=== PATIENT | male | born 1955 | race Caucasian/White ===

== ENCOUNTER 2017-04-12 09:32 | Inpatient (IN) | payer MEDICARE ==
[~2017-04-12] VITALS: Ht 177.8 cm; Wt 60.0 kg
[~2017-04-12 09:32] MED LIST: ACET325S8 PO; AMLO5 PO; ASPI81CH3 PO; ATOR20TA PO; CILO100T PO; CLOP75 PO; GLUCTAB PO; ISOS60 PO; LEVO50TA4 PO; MAGN400 PO; MIRTA15 PO; NEUR600T PO; PERC10TA27 PO; PROT40TA PO; SENN-29 PO; TAB-TAB PO; TRAD5TAB PO
[2017-04-12 09:55] VITALS: BP 152/79; PULSE 89; RESP 18; TEMP 98.2; O2SAT 97
[2017-04-12 10:14] VITALS: O2SAT 96
[2017-04-12 10:56] LABS: AUTOMATED NEUTROPHIL # 8.8 TH/MM3 (1.8-7.7); BASOPHIL % 0.4 % (0.0-2.0); EOSINOPHIL # 0.1 TH/MM3 (0-0.4); EOSINOPHIL % 1.1 % (0.0-4.0); HEMOGLOBIN 13.6 GM/DL (13.0-17.0); LYMPH % 13.6 % (9.0-44.0); LYMPHOCYTE # 1.6 TH/MM3 (1.0-4.8); MEAN CELL VOLUME 89.2 FL (80.0-100.0); MEAN CORPUSCULAR HEMOGLOBIN 30.3 PG (27.0-34.0); MEAN PLATELET VOLUME 9.3 FL (7.0-11.0); NEUT % 75.9 % (16.0-70.0); PLATELET COUNT 267 TH/MM3 (150-450); RED BLOOD COUNT 4.48 MIL/MM3 (4.50-5.90); RED CELL DISTRIBUTION WIDTH 13.2 % (11.6-17.2); WHITE BLOOD COUNT 11.6 TH/MM3 (4.0-11.0)
[2017-04-12 11:02] LABS: PROTHROMBIN TIME - PATIENT 10.3 SEC (9.8-11.6)
[2017-04-12 11:20] LABS: ALBUMIN 3.6 GM/DL (3.4-5.0); ALKALINE PHOSPHATASE 144 U/L (45-117); ALT (GPT) 12 U/L (12-78); AST (GOT) 10 U/L (15-37); BICARBONATE 26.6 MEQ/L (21.0-32.0); BLOOD UREA NITROGEN 17 MG/DL (7-18); CHLORIDE 99 MEQ/L (98-107); CREATININE 1.25 MG/DL (0.60-1.30); GLOMERULAR FILTRATION RATE 59 ML/MIN (>89); GLUCOSE,RANDOM 403 MG/DL (74-106); SODIUM (NA) 135 MEQ/L (136-145); TOTAL BILIRUBIN ADULT 0.4 MG/DL (0.2-1.0); TOTAL PROTEIN 7.8 GM/DL (6.4-8.2); TROPONIN I LESS THAN 0.02 NG/ML (0.02-0.05)
--- NOTE | 2017-04-12 11:22 | RADRPT ---
EXAM DATE/TIME: 04/12/2017 10:38 [facility] COMPARISON: No previous studies available for comparison. INDICATIONS : Large ulcer on the plantar surface of the left great toe, second and third digits appear red and inf lamed MEDICAL HISTORY : diabetic SURGICAL HISTORY : right leg amputation ENCOUNTER: Initial ACUITY: 2 days PAIN SCORE: 9/10 LOCATION: Left foot FINDINGS: 3 views of the left foot demonstrate no acute fracture or dislocation. Mineralization is within justina l limits. Lisfranc joint appears intact. There is soft tissue swelling of the first digit with ulcera tion along the plantar aspect. There is no radiopaque foreign body. The adjacent distal phalanx demon strates no erosion, periosteal reaction, or osteopenia to suggest osteomyelitis. There is severe smal l vessel arterial vascular calcification in a pattern typical for a diabetic patient. There are degen erative changes in the midfoot. CONCLUSION: 1. Soft tissue swelling of the first digit. There are no findings to indicate osteomyelitis of the ad jacent bones. Please note that the radiographic findings of osteomyelitis can take 10-14 days to beco me apparent. Therefore, suggest followup if clinical suspicion persists for osteomyelitis. 2. Severe small vessel arterial vascular calcification. Chirag Green MD on April 12, 2017 at 11:19 Board Certified Radiologist. This report was verified electronically.
--- NOTE | 2017-04-12 11:24 | RADRPT ---
EXAM DATE/TIME: 04/12/2017 10:35 [facility] COMPARISON: CHEST SINGLE AP, July 29, 2011, 16:18. INDICATIONS : Chest pain today MEDICAL HISTORY : diabetic, ulcer plantar surface of left foot SURGICAL HISTORY : right leg amputation ENCOUNTER: Initial ACUITY: 1 day PAIN SCORE: Non-responsive. LOCATION: Bilateral chest FINDINGS: Portable AP view of the chest demonstrates a normal-sized cardiac silhouette. No effusion, consolidat ion, or pneumothorax is visualized. The bones and soft tissues demonstrate no acute abnormality. CONCLUSION: No acute cardiopulmonary abnormality is identified. Chirag Green MD on April 12, 2017 at 11:22 Board Certified Radiologist. This report was verified electronically.
--- NOTE | 2017-04-12 11:41 | PD ---
HPI Chief Complaint: Pain: Acute or Chronic Time Seen by Provider: 10:23 Travel History International Travel<30 days: No Contact w/Intl Traveler<30days: No Traveled to known affect area: No History of Present Illness HPI This is a 61-year-old male with a history of diabetes mellitus, hypertension, peripheral vascular disease, presents here with complaints of redness and drainage of his left first and second toe. Patient states that over the weekend he noticed that it was discolored. He had his check it and she noted that there were ulcers on the bottom of his 2 toes. He was seen by his ob gyn, Dr. Garcia, who evaluated him and sent him here for admission. Patient was also complaining of some atypical chest pain. He reports that the pain from his foot runs up his leg into his groin and into his left chest. He describes it as a 6 out of 10 on the pain scale. There is no radiation from his chest. There is no nausea, diaphoresis. PFSH Past Medical History Arthritis: Yes Asthma: No Anxiety: No Depression: Yes Cancer: Yes (angiosarcoma) Cardiovascular Problems: Yes Chest Pain: No COPD: No Diabetes: Yes Endocrine: Yes Gastrointestinal Disorders: Yes (22 YRS AGO PANCREATITIS GERD) Genitourinary: No Hepatitis: No Hiatal Hernia: No Hypertension: Yes Immune Disorder: No Musculoskeletal: Yes Neurologic: No Psychiatric: No Respiratory: No Integumentary: Yes (contact dermatitis) Immunizations Current: Yes Pancreatitis: Yes Thyroid Disease: Yes (hyperthyroid) Past Surgical History Abdominal Surgery: No Body Medical Devices: LUMBAR FUSION Cardiac Surgery: No Ear Surgery: No Endocrine Surgery: No Eye Surgery: No Genitourinary Surgery: No Gynecologic Surgery: No Joint Replacement: No Oral Surgery: Yes (TONSILLECTOMY) Pacemaker: No Thoracic Surgery: No Other Surgery: Yes (APPENDECTOMY) Social History Alcohol Use: No Tobacco Use: No Substance Use: No Allergies-Medications (Allergen,Severity, Reaction): Coded Allergies: No Known Allergies (Verified Allergy, Unknown, 04/12/17) Reported Meds & Prescriptions Reported Meds & Active Scripts Active Review of Systems Except as stated in HPI: all other systems reviewed are Neg General / Constitutional: No: Fever, Chills Eyes: No: Diploplia, Blurred Vision HENT: No: Headaches, Lightheadedness, Neck Pain Cardiovascular: Positive: Chest Pain or Discomfort (Left-sided reported as "lumpy"), No: Palpitations, Irregular Rhythm Respiratory: No: Cough Gastrointestinal: No: Nausea, Vomiting Genitourinary: No: Dysuria, Incontinence Musculoskeletal: Positive: Pain (From his lower left extremity up his groin), Other (Redness and drainage to his) Skin: Positive Lesions (Red and dark lesion to the pad of his second and first left toes) Neurologic: Positive: Sensory Disturbance, No: Weakness, Dizziness, Headache ( Neuropathy from the diabetes.) Psychiatric: No: Substance Abuse Physical Exam Narrative GENERAL: Well-developed well-nourished male in no acute respiratory distress. SKIN: Focused skin assessment warm/dry. HEAD: Atraumatic. Normocephalic. EYES: Pupils equal and round. No scleral icterus. No injection or drainage. ENT: No nasal bleeding or discharge. Mucous membranes pink and moist. NECK: Trachea midline. Supple CARDIOVASCULAR: Regular rate and rhythm. No murmur appreciated. RESPIRATORY: No accessory muscle use. Clear to auscultation. Breath sounds equal bilaterally. GASTROINTESTINAL: Abdomen soft, non-tender, nondistended. Hepatic and splenic margins not palpable. MUSCULOSKELETAL: Previous right lower extremity amputation. On examination patient left foot, he has redness/circumferential, of his first and second toes. On the bottom there are black eschar ulcerations with some serous drainage. There is lymphangitis noted mid medial jack. NEUROLOGICAL: Awake and alert. No obvious cranial nerve deficits. Motor grossly within normal limits. Normal speech. Data Data Last Documented VS Vital Signs Date Time Temp Pulse Resp B/P (MAP) Pulse Ox O2 Delivery O2 Flow Rate FiO2 04/12/17 09:55 98.2 89 18 152/79 (103) 97 Orders Orders Complete Blood Count With Diff (04/12/17 10:24) Comprehensive Metabolic Panel (04/12/17 10:24) Ckmb (Isoenzyme) Profile (04/12/17 10:24) Troponin I (04/12/17 10:24) Prothrombin Time / Inr (Pt) (04/12/17 10:24) Act Partial Throm Time (Ptt) (04/12/17 10:24) Blood Culture (04/12/17 10:24) Urinalysis - C+S If Indicated (04/12/17 10:24) Wound Culture And Gram Stain (04/12/17 10:24) Chest, Single Ap (04/12/17 10:24) Iv Access Insert/Monitor (04/12/17 10:24) Ecg Monitoring (04/12/17 10:24) Oximetry (04/12/17 10:24) Foot, Complete (Mos1uwd) (04/12/17 10:24) Electrocardiogram (04/12/17 10:15) Admit To Inpatient (04/12/17 ) Code Status (04/12/17 11:48) Vital Signs (Adult) Q4H (04/12/17 11:48) Activity Oob With Assistance (04/12/17 11:48) Vessel Engineer / Telemetry .CONTINUOUS (04/12/17 11:48) Diet Diabetic (04/12/17 Lunch) Sodium Chloride 0.9% Flush (Ns Flush) (04/12/17 12:00) Sodium Chloride 0.9% Flush (Ns Flush) (04/12/17 21:00) Acetaminophen (Tylenol) (04/12/17 12:00) Metoclopramide Inj (Reglan Inj) (04/12/17 12:00) Basic Metabolic Panel (Bmp) (04/13/17 06:00) Complete Blood Count With Diff (04/13/17 06:00) Pt Request For Service (04/12/17 11:48) Scd Bilateral/Knee High LUAN.BID (04/12/17 11:48) Naloxone Inj (Narcan Inj) (04/12/17 12:00) Magnesium Hydroxide Liq (Milk Of Magnesi (04/12/17 12:00) Inpatient Certification (04/12/17 ) Vancomycin Inj (Vancomycin Inj) (04/12/17 12:00) Piperacil-Tazo 3.375 Gm Premix (Zosyn 3. (04/12/17 12:00) Mri Foot W&W/O Contrast (04/12/17 ) Insulin Aspart Supplemtl Scale (Novolog (04/12/17 12:00) Dextrose 50% In Silvia (Vial) Inj (D50w (Vi (04/12/17 12:00) Glucagon Inj (Glucagon Inj) (04/12/17 12:00) Vancomycin Inj (Vancomycin Inj) (04/13/17 00:05) Admit Order (Ed Use Only) (04/12/17 12:39) Vancomycin Consult Pharmacy (Vancomycin (04/12/17 13:00) Labs Laboratory Tests Test 04/12/17 10:20 White Blood Count 11.6 TH/MM3 Red Blood Count 4.48 MIL/MM3 Hemoglobin 13.6 GM/DL Hematocrit 40.0 % Mean Corpuscular Volume 89.2 FL Mean Corpuscular Hemoglobin 30.3 PG Mean Corpuscular Hemoglobin Concent 34.0 % Red Cell Distribution Width 13.2 % Platelet Count 267 TH/MM3 Mean Platelet Volume 9.3 FL Neutrophils (%) (Auto) 75.9 % Lymphocytes (%) (Auto) 13.6 % Monocytes (%) (Auto) 9.0 % Eosinophils (%) (Auto) 1.1 % Basophils (%) (Auto) 0.4 % Neutrophils # (Auto) 8.8 TH/MM3 Lymphocytes # (Auto) 1.6 TH/MM3 Monocytes # (Auto) 1.0 TH/MM3 Eosinophils # (Auto) 0.1 TH/MM3 Basophils # (Auto) 0.0 TH/MM3 CBC Comment DIFF FINAL Differential Comment Prothrombin Time 10.3 SEC Prothromb Time International Ratio 1.0 RATIO Activated Partial Thromboplast Time 27.5 SEC Blood Urea Nitrogen 17 MG/DL Creatinine 1.25 MG/DL Random Glucose 403 MG/DL Total Protein 7.8 GM/DL Albumin 3.6 GM/DL Calcium Level 9.0 MG/DL Alkaline Phosphatase 144 U/L Aspartate Amino Transf (AST/SGOT) 10 U/L Alanine Aminotransferase (ALT/SGPT) 12 U/L Total Bilirubin 0.4 MG/DL Sodium Level 135 MEQ/L Potassium Level 4.3 MEQ/L Chloride Level 99 MEQ/L Carbon Dioxide Level 26.6 MEQ/L Anion Gap 9 MEQ/L Estimat Glomerular Filtration Rate 59 ML/MIN Total Creatine Kinase 44 U/L Troponin I LESS THAN 0.02 NG/ML MDM Medical Decision Making Medical Screen Exam Complete: Yes Emergency Medical Condition: Yes Differential Diagnosis Cellulitis versus osteomyelitis versus vascular insufficiency Narrative Course 61-year-old male history diabetes mellitus, hypertension, who was sent here by his ob gyn for admission to the hospitalist service. Patient also complained of atypical chest pain. EKG shows no evidence of acute findings. Cultures have been obtained. Patient be started on vancomycin. There is a call out to the [facility] service. He will be admitted and have a consult with the ob gyn production consultant, Carlyn. Diagnosis Primary Impression: Left foot first and second toe ulcers with cellulitis Additional Impressions: DM2 (diabetes mellitus, type 2) PVD (peripheral vascular disease) HTN (hypertension) Admitting Information Admitting Physician Requests: Admit Bill Mitchell MD Apr 12, 2017 11:41
[2017-04-12] MEDS ORDERED: SODIUM CHLORIDE 0.9% FLUSH 10 ML FLUSH IV FLUSH PRN (12:00)
[2017-04-12] MEDS ORDERED: METOCLOPRAMIDE HCL 10 MG/2 ML VIAL IV PUSH PRN (12:00)
[2017-04-12] MEDS ORDERED: GLUCAGON 1 MG/ML VIAL OTHER PRN (12:00)
[2017-04-12] MEDS ORDERED: NALOXONE HCL 0.4 MG/ML AMP IV PUSH PRN (12:00)
[2017-04-12] MEDS ORDERED: VANCOMYCIN INJ 1,000 MG in SODIUM CHLOR 0.9% 250 ML INJ 250 ML IV ONE (12:00)
[2017-04-12] MEDS ORDERED: ACETAMINOPHEN 325 MG TAB PO PRN (12:00)
[2017-04-12] MEDS ORDERED: DEXTROSE 50% IN WATER 50 ML VIAL(D50) IV PUSH PRN (12:00)
[2017-04-12] MEDS ORDERED: MAGNESIUM HYDROXIDE SUSP 30 ML CUP PO PRN (12:00)
[2017-04-12] MEDS: INSULIN ASPART SUPPLEMENTAL SCALE SQ SCH ×3 (12:12→20:24)
[2017-04-12] MEDS ORDERED: Vancomycin Consult Pharmacy 1 EA OTHER SCH (13:00)
[2017-04-12] MEDS: PIPERACIL-TAZO 3.375 GM PREMIX 50 ML IV SCH ×2 (13:16→17:54)
[2017-04-12 13:19] VITALS: BP 122/69; PULSE 82; RESP 17; O2SAT 96
[2017-04-12] MEDS ORDERED: CALC600T5 PO (13:29)
[2017-04-12] MEDS ORDERED: MAGNESIUM 1000 MG PO (13:29)
[2017-04-12] MEDS ORDERED: VITA10002 PO (13:29)
[2017-04-12] MEDS ORDERED: AMLO5 PO (13:29)
[2017-04-12] MEDS ORDERED: INSU1INJ14 SQ (13:29)
[2017-04-12] MEDS ORDERED: PANC3600 PO (13:29)
[2017-04-12] MEDS ORDERED: NOVOLOGP2 SQ (13:29)
[2017-04-12] MEDS ORDERED: MULTTAB67 PO (13:29)
[2017-04-12] MEDS ORDERED: LEVO.075 PO (13:29)
[2017-04-12] MEDS ORDERED: PANT40TA3 PO (13:29)
[2017-04-12] MEDS ORDERED: METF850T PO (13:29)
[2017-04-12] MEDS ORDERED: LIPI40TA PO (13:29)
[2017-04-12] MEDS ORDERED: TRAD5TAB PO (13:29)
[2017-04-12] MEDS ORDERED: SYNT88TA PO (13:29)
[2017-04-12] MEDS ORDERED: VITA100018 PO (13:29)
[2017-04-12] MEDS ORDERED: PLAV75TA29 PO (13:29)
[2017-04-12] MEDS ORDERED: LYRI75CA PO (13:29)
[2017-04-12] MEDS ORDERED: CILO100T PO (13:29)
[2017-04-12] MEDS ORDERED: ASPI81TA16 PO (13:29)
[2017-04-12] MEDS ORDERED: ISOS60TA PO (13:29)
--- NOTE | 2017-04-12 13:57 | HHI.HP ---
HPI Service [facility] Hospitalists Primary Care Physician Willis Boyd MD Admission Diagnosis Left foot cellulitis, DM, HTN, Chief Complaint: ledt foot wound Travel History International Travel<30 Days: No Contact w/Intl Traveler <30 Da: No Traveled to Known Affected Are: No History of Present Illness Mr. Ott is a pleasant 61 y/o male with diabetes mellitus, hypertension, peripheral vascular disease s/p right AKA in 2016, and chronic pain who presented to the ED at [facility] on 04/12/17 with complaints of redness and drainage of his left first and second toes. Patient reported that over the weekend he noticed the first and second toes became discolored. He had his check it and she noted that there were ulcers on the bottom of his 2 toes. He was seen by his technical support technician, Dr. Garcia, who evaluated him and sent him here for admission. He reports that the pain from his foot runs up his leg into his groin. He also reported some left chest pain that began yesterday, rated as a 6 out of 10 on the pain scale. It occurs sporadically and lasts for varying amounts of time. It can vary from a sharp pain to a dull ache, not exertional. No reported SOB, palpitations, nausea/vomiting, diaphoresis, or weakness. Review of Systems Constitutional: DENIES: Fever, Chills Respiratory: DENIES: Shortness of breath Cardiovascular: COMPLAINS OF: Chest pain, Lower Extremity Edema Gastrointestinal: DENIES: Abdominal pain, Constipation, Nausea, Vomiting Genitourinary: DENIES: Hematuria, Dysuria Musculoskeletal: COMPLAINS OF: Joint pain, Joint Swelling Neurologic: DENIES: Headache Psychiatric: DENIES: Confusion Past Family Social History Past Medical History PVD s/p right AKA Type 2 diabetes mellitus with polyneuropathy Gout Hypertension Hyperlipidemia Insomnia Lumbar radiculopathy Chronic pancreatitis GERD Chronic pancreatitis History of seizure disorder Depression Hypothyroidism B12 deficiency Bilateral cataracts Chronic pain Decreased hearing Lumbar disc degeneration Osteoarthritis Past Surgical History Right AKA Appendectomy Cataract surgery Lumbar Laminectomy Tonsillectomy Skin biopsy Esophageal gastroduodenoscopy Two endovascular procedures Reported Medications -Lyrica 75 Mg PO TID -Pantoprazole 40 Mg PO BID -Creon (Pancrelipase) 36,000-114,000-180,000 Units 2 Cap PO TID -Metformin 850 Mg PO BIDPC -Magnesium Oxide 1,000 Mg PO EVERY OTHER DAY -Synthroid 88 Mcg PO MOWESA -Synthroid 75 Mcg PO SUTUTHFR -Isosorbide Mononitrate ER 60 Mg PO DAILY -Tresiba Flextouch Pen Inj 18 Units SQ HS -Novolog Inj 6 Units SQ TIDAC -Plavix 75 Mg PO DAILY -Lipitor 40 Mg PO DAILY -Aspirin 81 Mg PO DAILY ??Cilostazol 100 Mg Tab 100 Mg PO BID ??Norvasc (Amlodipine Besylate) 5 Mg Tab 5 Mg PO DAILY ??Tradjenta (Linagliptin) 5 Mg Tab 5 Mg PO DAILY Calcium 600 Mg PO BID Multiple Vitamin 1 Tab PO DAILY Vitamin D3 1,000 Units PO DAILY Vitamin B-12 1,000 Mcg PO DAILY Allergies: Coded Allergies: No Known Allergies (Verified Allergy, Unknown, 04/12/17) Family History Noncontributory Social History Hx of tobacco use, quit 25 years ago Social alcohol use Denies any illicit drug use Physical Exam Vital Signs Vital Signs Date Time Temp Pulse Resp B/P (MAP) Pulse Ox O2 Delivery O2 Flow Rate FiO2 04/12/17 13:19 82 17 122/69 (86) 96 Room Air 04/12/17 10:14 96 04/12/17 09:55 98.2 89 18 152/79 (103) 97 Physical Exam GENERAL: This is a well-nourished, well-developed patient, in no apparent distress. SKIN: No rashes, ecchymoses or lesions. Cool and dry. HEENT: Atraumatic. Normocephalic. No temporal or scalp tenderness. No scleral icterus. Airway patent. NECK: Trachea midline, supple, nontender CARDIO: Regular. RESP: CTA bilaterally. No wheezes, rales, or rhonchi. ABD: +BS, soft, non-tender, nondistended. EXT: Right AKA. Left foot first and second toes with circumferential erythema and black eschar ulcerations with some serous drainage on the plantar aspects. There is streaking noted mid medial jack. NEURO: Awake and alert. Motor and sensory grossly within normal limits. Normal speech. Laboratory Laboratory Tests Test 04/12/17 10:20 White Blood Count 11.6 Red Blood Count 4.48 Hemoglobin 13.6 Hematocrit 40.0 Mean Corpuscular Volume 89.2 Mean Corpuscular Hemoglobin 30.3 Mean Corpuscular Hemoglobin Concent 34.0 Red Cell Distribution Width 13.2 Platelet Count 267 Mean Platelet Volume 9.3 Neutrophils (%) (Auto) 75.9 Lymphocytes (%) (Auto) 13.6 Monocytes (%) (Auto) 9.0 Eosinophils (%) (Auto) 1.1 Basophils (%) (Auto) 0.4 Neutrophils # (Auto) 8.8 Lymphocytes # (Auto) 1.6 Monocytes # (Auto) 1.0 Eosinophils # (Auto) 0.1 Basophils # (Auto) 0.0 CBC Comment DIFF FINAL Differential Comment Prothrombin Time 10.3 Prothromb Time International Ratio 1.0 Activated Partial Thromboplast Time 27.5 Blood Urea Nitrogen 17 Creatinine 1.25 Random Glucose 403 Total Protein 7.8 Albumin 3.6 Calcium Level 9.0 Alkaline Phosphatase 144 Aspartate Amino Transf (AST/SGOT) 10 Alanine Aminotransferase (ALT/SGPT) 12 Total Bilirubin 0.4 Sodium Level 135 Potassium Level 4.3 Chloride Level 99 Carbon Dioxide Level 26.6 Anion Gap 9 Estimat Glomerular Filtration Rate 59 Total Creatine Kinase 44 Troponin I LESS THAN 0.02 Date/Time Source Procedure Growth Status 04/12/17 10:30 Blood Peripheral Aerobic Blood Culture Pending Received 04/12/17 10:30 Blood Peripheral Anaerobic Blood Culture Pending Received 04/12/17 10:35 Wound Toe Gram Stain Pending Received 04/12/17 10:35 Wound Toe Wound Culture Pending Received Result Diagram: 04/12/17 1020 04/12/17 1020 Imaging Foot Xray (04/12/17) - Soft tissue swelling of the first digit. There are no findings to indicate osteomyelitis of the adjacent bone. - Severe small vessel arterial vascular calcifications CXR (04/12/17) - No acute cardiopulmonary abnormality identified Caprini VTE Risk Assessment Caprini VTE Risk Assessment: Mod/High Risk (score >= 2) Caprini Risk Assessment Model Point Value = 1 Point Value = 2 Point Value = 3 Point Value = 5 Age 41-60 Minor surgery BMI > 25 kg/m2 Swollen legs Varicose veins or History of unexplained or recurrent spontaneous Oral contraceptives or hormone replacement Sepsis (< 1 month) Serious lung disease, including pneumonia (< 1 month) Abnormal pulmonary function Acute myocardial infarction Congestive heart failure (< 1 month) History of inflammatory bowel disease Medical patient at bed rest Age 61-74 Arthroscopic surgery Major open surgery (> 45 min) Laparoscopic surgery (> 45 min) Malignancy Confined to bed (> 72 hours) Immobilizing plaster cast Central venous access Age >= 75 History of VTE Family history of VTE Factor V Leiden Prothrombin [id number] Lupus anticoagulant Anticardiolipin antibodies Elevated serum homocysteine Heparin-induced thrombocytopenia Other congenital or acquired thrombophilia Stroke (< 1 month) Elective arthroplasty Hip, pelvis, or leg fracture Acute spinal cord injury (< 1 month) Prophylaxis Regimen Total Risk Factor Score Risk Level Prophylaxis Regimen 0-1 Low Early ambulation 2 Moderate Order ONE of the following: *Sequential Compression Device (SCD) *Heparin 5000 units SQ BID 3-4 Higher Order ONE of the following medications: *Heparin 5000 units SQ TID *Enoxaparin/Lovenox 40 mg SQ daily (WT < 150 kg, CrCl > 30 mL/min) *Enoxaparin/Lovenox 30 mg SQ daily (WT < 150 kg, CrCl > 10-29 mL/min) *Enoxaparin/Lovenox 30 mg SQ BID (WT < 150 kg, CrCl > 30 mL/min) AND/OR *Sequential Compression Device (SCD) 5 or more Highest Order ONE of the following medications: *Heparin 5000 units SQ TID (Preferred with Epidurals) *Enoxaparin/Lovenox 40 mg SQ daily (WT < 150 kg, CrCl > 30 mL/min) *Enoxaparin/Lovenox 30 mg SQ daily (WT < 150 kg, CrCl > 10-29 mL/min) *Enoxaparin/Lovenox 30 mg SQ BID (WT < 150 kg, CrCl > 30 mL/min) AND *Sequential Compression Device (SCD) Assessment and Plan Problem List: (1) Unspecified open wound, left foot, initial encounter ICD Codes: S91.302A - Unspecified open wound, left foot, initial encounter Plan: - Pt is a 61 y/o male with diabetes mellitus, hypertension, peripheral vascular disease s/p right AKA in 2015, and chronic pain who presented to the ED at [facility] on 04/12/17 with complaints of redness and drainage of his left first and second toes. Patient reported that over the weekend he noticed the first and second toes became discolored and there were ulcers on the bottom of his 2 toes. He was seen by his technical support technician, Dr. Garcia, today who evaluated him and sent him here for admission. - Foot Xray in the ED without evidence of osteomyelitis - MRI Foot ordered - Wound culture and blood cultures taken in the ED - Vancomycin IV given in the ED, and this will be continued with pharmacy dosing - Start Zosyn - Consult podiatry - Hold Plavix for now in case podiatry plans any surgical intervention - Supportive care - Further recommendations as the case develops (2) PVD (peripheral vascular disease) ICD Codes: I73.9 - Peripheral vascular disease, unspecified Status: Acute Plan: - Pt with hx of PAD and has right AKA (3) Chest pain ICD Codes: R07.9 - Chest pain, unspecified Plan: - First set of CE are negative - Repeat CE and EKGs - 2D echo - Lexiscan in AM (4) DM2 (diabetes mellitus, type 2) ICD Codes: E11.9 - Type 2 diabetes mellitus without complications Status: Chronic Plan: - Hold OHA - NovoLog SSI - Pt also takes Tresiba 18 units HS, we will give Levemir 10 units HS and titrate up as needed - Accu checks (5) HTN (hypertension) ICD Codes: I10 - Essential (primary) hypertension Status: Chronic Plan: - Resume home meds - Monitor (6) Depression ICD Codes: F32.9 - Major depressive disorder, single episode, unspecified Status: Chronic Plan: - Cont. home meds (7) Unilateral AKA ICD Codes: Z89.619 - Acquired absence of unspecified leg above knee Status: Acute Assessment and Plan Patient examined. Assessment and plan formulated with Adry Martinez PA-C. I agree with the above. Physician Certification 2 Midnight Certification Type: Admission for Inpatient Services Order for Inpatient Services The services are ordered in accordance with Medicare regulations or non- Medicare payer requirements, as applicable. In the case of services not specified as inpatient-only, they are appropriately provided as inpatient services in accordance with the 2-midnight benchmark. Estimated LOS (days): 3 3 days is the estimated time the patient will need to remain in the hospital, assuming treatment plan goals are met and no additional complications. Post-Hospital Plan: Not yet determined Adry Martinez Apr 12, 2017 13:57 Chapito Woods DO Apr 19, 2017 10:39
[2017-04-12] MEDS ORDERED: GADODIAMIDE PF 287 MG/ML 20 ML VIAL (for RAD MRI) IV PUSH ONE (14:27)
--- NOTE | 2017-04-12 15:20 | RADRPT ---
EXAM DATE/TIME: 04/12/2017 13:56 [facility] COMPARISON: FOOT LEFT COMPLETE ([id number]), April 12, 2017, 10:38. INDICATIONS : Ulcer. Open wound on distal end of first and second digit, left foot. CONTRAST: 20 cc Omniscan (gadodiamide) IV MEDICAL HISTORY : Hypertension. Diabetes. SURGICAL HISTORY : Fusion, lumbar. Tonsillectomy. Appendectomy. Cataracts. Knee. Shoulder. ENCOUNTER: Subsequent ACUITY: 4-6 days PAIN SCORE: 0/10 LOCATION: Left foot TECHNIQUE: Multiplanar, multisequence MRI examination was performed without contrast and after the intravenous a dministration of gadolinium. MR angiography from the trifurcation down was performed as well. There is generalized edema in the foot. There is no marrow replacement to suggest osteomyelitis. There is no deep space abscess. On the MR angiogram there is 2 vessel runoff to the foot the dorsalis pedis the peroneal artery does not cross the ankle. The posterior tibial artery is not identified. evident fed by the anterior tibi al. FINDINGS: There is an open wound involving the distal first and second toes. Study was performed with MR angio graphy sequences as well. There is generalized edema in the foot. There is no marrow replacement to suggest osteomyelitis. There is no deep space abscess. On the MR angiogram there is 2 vessel runoff to the foot with the dorsalis pedis supplying blood flow to the foot from the anterior tibial artery.. The posterior tibial artery is not identified. Plantar arch is no t visualized.. The peroneal artery does not cross the ankle. CONCLUSION: 1. No evidence for osteomyelitis. 2. 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 The dorsalis pedis is well-demonstrated fed by the anterior tibial artery. Blake Edwards MD FACR on April 12, 2017 at 15:13 Board Certified Radiologist. This report was verified electronically.
[2017-04-12 16:00] VITALS: BP 141/70; PULSE 67; RESP 20; TEMP 98.2; O2SAT 97
[2017-04-12] MEDS: LEVOTHYROXINE SODIUM 88 MCG TAB PO SCH (17:53)
[2017-04-12] MEDS: PREGABALIN 75 MG CAP PO SCH (17:53)
[2017-04-12] MEDS: LIPASE/PROTEASE/AMYLASE (12,000/38,000/60,000) CAP PO SCH (17:54)
[2017-04-12 20:00] VITALS: BP 134/70; PULSE 64; RESP 18; TEMP 98.1; O2SAT 95
[2017-04-12] MEDS: PANTOPRAZOLE SOD 40 MG DELAYED RELEASE TAB PO SCH (20:23)
[2017-04-12] MEDS: INSULIN DETEMIR 100 UNITS/ML VIAL SQ SCH (20:24)
[2017-04-12] MEDS: SODIUM CHLORIDE 0.9% FLUSH 10 ML FLUSH IV FLUSH SCH (20:24)
[2017-04-12 21:21] LABS: TROPONIN I LESS THAN 0.02 NG/ML (0.02-0.05)
[2017-04-13] VITALS (7 sets, daily range): BP systolic 114–132; BP diastolic 59–75; PULSE 58–84; RESP 18–19; TEMP 97.7–98.2; O2SAT 93–97
[2017-04-13] MEDS ORDERED: VANCOMYCIN INJ 1,000 MG in SODIUM CHLOR 0.9% 250 ML INJ 250 ML IV SCH (00:05)
[2017-04-13] MEDS: PIPERACIL-TAZO 3.375 GM PREMIX 50 ML IV SCH ×4 (00:30→16:46)
[2017-04-13 03:01] LABS: AUTOMATED NEUTROPHIL # 5.7 TH/MM3 (1.8-7.7); BASOPHIL # 0.1 TH/MM3 (0-0.2); BASOPHIL % 1.2 % (0.0-2.0); EOSINOPHIL # 0.3 TH/MM3 (0-0.4); EOSINOPHIL % 3.7 % (0.0-4.0); HEMOGLOBIN 13.4 GM/DL (13.0-17.0); LYMPHOCYTE # 2.2 TH/MM3 (1.0-4.8); MEAN CELL VOLUME 87.9 FL (80.0-100.0); MEAN CORPUSCULAR HEMOGLOBIN 30.1 PG (27.0-34.0); MEAN CORPUSCULAR HGB CONC 34.2 % (32.0-36.0); MEAN PLATELET VOLUME 8.7 FL (7.0-11.0); MONOCYTE # 0.8 TH/MM3 (0-0.9); NEUT % 62.1 % (16.0-70.0); PLATELET COUNT 278 TH/MM3 (150-450); RED BLOOD COUNT 4.44 MIL/MM3 (4.50-5.90); RED CELL DISTRIBUTION WIDTH 12.8 % (11.6-17.2); WHITE BLOOD COUNT 9.2 TH/MM3 (4.0-11.0)
[2017-04-13 03:32] LABS: BICARBONATE 27.2 MEQ/L (21.0-32.0); CALCIUM 9.2 MG/DL (8.5-10.1); CREATININE 1.09 MG/DL (0.60-1.30)
[2017-04-13] MEDS: VANCOMYCIN INJ 1,250 MG in SODIUM CHLOR 0.9% 250 ML INJ 250 ML IV SCH ×2 (03:38→21:00)
[2017-04-13 03:49] LABS: TROPONIN I LESS THAN 0.02 NG/ML (0.02-0.05)
[2017-04-13] MEDS: LEVOTHYROXINE SODIUM 75 MCG TAB PO SCH (06:30)
[2017-04-13] MEDS: INSULIN ASPART SUPPLEMENTAL SCALE SQ SCH ×4 (08:00→21:00)
[2017-04-13] MEDS: LIPASE/PROTEASE/AMYLASE (12,000/38,000/60,000) CAP PO SCH ×3 (08:54→16:46)
[2017-04-13] MEDS: ASPIRIN EC 81 MG TABEC PO SCH (08:55)
[2017-04-13] MEDS: amLODIPine BESYLATE 5 MG TAB PO SCH (08:55)
[2017-04-13] MEDS: PANTOPRAZOLE SOD 40 MG DELAYED RELEASE TAB PO SCH ×2 (08:55→21:00)
[2017-04-13] MEDS: ATORVASTATIN 40 MG TAB PO SCH (08:55)
[2017-04-13] MEDS: PREGABALIN 75 MG CAP PO SCH ×3 (08:55→16:46)
[2017-04-13] MEDS: ISOSORBIDE MONONITRATE 60 MG CR TAB (IMDUR) PO SCH (08:55)
[2017-04-13] MEDS: SODIUM CHLORIDE 0.9% FLUSH 10 ML FLUSH IV FLUSH SCH ×2 (08:57→21:00)
[2017-04-13] MEDS ORDERED: REGADENOSON INJ 0.4 MG/5 ML SYR ONE (13:08)
--- NOTE | 2017-04-13 14:24 | ECHRPT ---
Indication: CHEST PAIN CONCLUSIONS Normal left ventricular size. Normal LV systolic function (EF 60%) Mild concentric left ventricular hypertrophy. Aortic valve sclerosis is present. BP: 114 / 59 HR: 62 Rhythm: Sinus MEASUREMENTS (Male / Female) Normal Values Technical Quality:Fair 2D ECHO LV Diastolic Diameter PLAX 5.0 cm 4.2 - 5.9 / 3.9 - 5.3 cm LV Systolic Diameter PLAX 3.5 cm IVS Diastolic Thickness 1.1 cm 0.6 - 1.0 / 0.6 - 0.9 cm LVPW Diastolic Thickness 1.1 cm 0.6 - 1.0 / 0.6 - 0.9 cm LV Relative Wall Thickness 0.4 LVOT Diameter 1.8 cm Aortic Root Diameter 3.2 cm M-MODE AV Cusp Separation MM 2.0 cm DOPPLER AV Peak Velocity 117.0 cm/s AV Peak Gradient 5.5 mmHg AV Mean Gradient 3.0 mmHg AV Velocity Time Integral 17.5 cm LVOT Peak Velocity 89.5 cm/s LVOT Peak Gradient 3.2 mmHg LVOT Velocity Time Integral 17.2 cm AV Area Cont Eq vti 2.5 cm AV Area Cont Eq pk 1.9 cm Mitral E Point Velocity 67.6 cm/s Mitral A Point Velocity 87.4 cm/s Mitral E to A Ratio 0.8 LV E' Lateral Velocity 6.9 cm/s Mitral E to LV E' Lateral Ratio 9.8 LV E' Septal Velocity 5.5 cm/s Mitral E to LV E' Septal Ratio 12.4 TR Peak Velocity 189.0 cm/s TR Peak Gradient 14.3 mmHg Right Atrial Pressure 10.0 mmHg Pulmonary Artery Systolic Pressu 24.3 mmHg Right Ventricular Systolic Press 24.3 mmHg PV Peak Velocity 48.9 cm/s PV Peak Gradient 1.0 mmHg FINDINGS LEFT VENTRICLE Normal left ventricular size. Mild concentric left ventricular hypertrophy. The left ventricular systolic function is normal with an estimated ejection fraction in the range of 60%. RIGHT VENTRICLE Normal right ventricular size and systolic function. LEFT ATRIUM The left atrial size is normal. RIGHT ATRIUM The right atrial size is normal. ATRIAL SEPTUM No atrial level shunt is demonstrated by color flow Doppler interrogation. AORTA The aortic root and proximal ascending aorta are not well visualized. MITRAL VALVE No mitral valve regurgitation. AORTIC VALVE Aortic valve sclerosis is present. No aortic valve regurgitation. TRICUSPID VALVE No tricuspid regurgitation. PULMONARY VALVE No pulmonary valve regurgitation or stenosis. VESSELS The inferior vena cava is normal in size. PERICARDIUM No pericardial effusion. Sabine Blanco MD, FACC (Electronically Signed) Final Date:13 April 2017 14:23
--- NOTE | 2017-04-13 15:16 | RADRPT ---
EXAM DATE/TIME: 04/13/2017 12:51 [facility] COMPARISON: No previous studies available for comparison. INDICATIONS : Substernal chest pain. Angina. DOSE: 25.5 mCi Tc99m Myoview at stress. 8.5 mCi Tc99m Myoview at rest. 0.4 mg Lexiscan STRESS SYMPTOMS: Shortness of breath and nausea. EJECTION FRACTION: > 70% MEDICAL HISTORY : Hypertension. Diabetes mellitus type 2. Gastroesophageal reflux disease. PVD. SURGICAL HISTORY : Appendectomy. Tonsillectomy. 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 ENCOUNTER: Initial ACUITY: 2 days PAIN SCALE: 4/10 LOCATION: Substernal chest TECHNIQUE: The patient underwent pharmacologic stress with infusion of prescribed dose. Continuous ECG tracing was monitored during stress. Gated SPECT imaging was performed after stress and conventional SPECT i maging was performed at rest. The examination was performed on a SPECT/CT scanner, both attenuation and non-corrected datasets were reviewed. FINDINGS: DISTRIBUTION: The maximum perfused segment at stress is in the septal wall. PERFUSION STUDY: The pattern of perfusion at stress is within normal limits. No fixed or reversible perfusion defect i s identified. GATED STUDY: There is intact wall motion and thickening without hypokinetic or dyskinetic segments. CONCLUSION: 1. No left ventricle perfusion abnormality is identified. 2. Normal left ventricle wall motion and calculated ejection fraction. RISK CATEGORY: Low (<1% Annual Mortality Rate) Chirag Green MD on April 13, 2017 at 15:12 Board Certified Radiologist. This report was verified electronically.
--- NOTE | 2017-04-13 15:35 | HHI.PR ---
Subjective Remarks Pt is still having some upper abdominal/lower chest discomfort He states that it is constant and seems to be worse when he is moving Reports that he had been sick about a week ago with food poisoning and was vomiting a lot at that time. Objective Vitals Vital Signs Date Time Temp Pulse Resp B/P (MAP) Pulse Ox O2 Delivery O2 Flow Rate FiO2 04/13/17 11:59 97.7 76 18 120/74 (89) 97 04/13/17 10:34 70 04/13/17 08:05 97.7 67 19 132/75 (94) 93 04/13/17 04:00 97.8 62 18 114/59 (77) 93 04/13/17 00:00 58 04/13/17 00:00 97.8 65 18 120/68 (85) 93 04/12/17 20:00 98.1 64 18 134/70 (91) 95 04/12/17 16:00 98.2 67 20 141/70 (93) 97 Result Diagram: 04/13/17 0250 04/13/17 0250 Other Results Laboratory Tests Test 04/12/17 10:20 04/12/17 20:22 04/13/17 02:50 White Blood Count 11.6 TH/MM3 9.2 TH/MM3 Red Blood Count 4.48 MIL/MM3 4.44 MIL/MM3 Hemoglobin 13.6 GM/DL 13.4 GM/DL Hematocrit 40.0 % 39.0 % Mean Corpuscular Volume 89.2 FL 87.9 FL Mean Corpuscular Hemoglobin 30.3 PG 30.1 PG Mean Corpuscular Hemoglobin Concent 34.0 % 34.2 % Red Cell Distribution Width 13.2 % 12.8 % Platelet Count 267 TH/MM3 278 TH/MM3 Mean Platelet Volume 9.3 FL 8.7 FL Neutrophils (%) (Auto) 75.9 % 62.1 % Lymphocytes (%) (Auto) 13.6 % 24.0 % Monocytes (%) (Auto) 9.0 % 9.0 % Eosinophils (%) (Auto) 1.1 % 3.7 % Basophils (%) (Auto) 0.4 % 1.2 % Neutrophils # (Auto) 8.8 TH/MM3 5.7 TH/MM3 Lymphocytes # (Auto) 1.6 TH/MM3 2.2 TH/MM3 Monocytes # (Auto) 1.0 TH/MM3 0.8 TH/MM3 Eosinophils # (Auto) 0.1 TH/MM3 0.3 TH/MM3 Basophils # (Auto) 0.0 TH/MM3 0.1 TH/MM3 CBC Comment DIFF FINAL DIFF FINAL Differential Comment Prothrombin Time 10.3 SEC Prothromb Time International Ratio 1.0 RATIO Activated Partial Thromboplast Time 27.5 SEC Blood Urea Nitrogen 17 MG/DL 13 MG/DL Creatinine 1.25 MG/DL 1.09 MG/DL Random Glucose 403 MG/DL 78 MG/DL Total Protein 7.8 GM/DL Albumin 3.6 GM/DL Calcium Level 9.0 MG/DL 9.2 MG/DL Alkaline Phosphatase 144 U/L Aspartate Amino Transf (AST/SGOT) 10 U/L Alanine Aminotransferase (ALT/SGPT) 12 U/L Total Bilirubin 0.4 MG/DL Sodium Level 135 MEQ/L 139 MEQ/L Potassium Level 4.3 MEQ/L 3.6 MEQ/L Chloride Level 99 MEQ/L 104 MEQ/L Carbon Dioxide Level 26.6 MEQ/L 27.2 MEQ/L Anion Gap 9 MEQ/L 8 MEQ/L Estimat Glomerular Filtration Rate 59 ML/MIN 69 ML/MIN Total Creatine Kinase 44 U/L 38 U/L 90 U/L Troponin I LESS THAN 0.02 NG/ML LESS THAN 0.02 NG/ML LESS THAN 0.02 NG/ML Imaging Last Impressions Foot X-Ray 04/12/17 1024 Signed Impressions: Service Date/Time: Wednesday, April 12, 2017 10:38 - CONCLUSION: 1. Soft tissue swelling of the first digit. There are no findings to indicate osteomyelitis of the adjacent bones. Please note that the radiographic findings of osteomyelitis can take 10-14 days to become apparent. Therefore, suggest followup if clinical suspicion persists for osteomyelitis. 2. Severe small vessel arterial vascular calcification. Chirag Green MD Chest X-Ray 04/12/17 1024 Signed Impressions: Service Date/Time: Wednesday, April 12, 2017 10:35 - CONCLUSION: No acute cardiopulmonary abnormality is identified. Chirag Green MD Foot MRI 04/12/17 0000 Signed Impressions: Service Date/Time: Wednesday, April 12, 2017 13:56 - CONCLUSION: 1. No evidence for osteomyelitis. 2. 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 The dorsalis pedis is well-demonstrated fed by the anterior tibial artery. Blake Edwards MD FACR Foot Xray (04/12/17) - Soft tissue swelling of the first digit. There are no findings to indicate osteomyelitis of the adjacent bone. - Severe small vessel arterial vascular calcifications CXR (04/12/17) - No acute cardiopulmonary abnormality identified Objective Remarks General: NAD, AAOx3 Chest: CTA Cardiac: Regular Abd: +BS, soft ND/NT Ext: Right AKA. Left foot first and second toes with circumferential erythema and black eschar ulcerations with some serous drainage on the plantar aspects. A/P Problem List: (1) Unspecified open wound, left foot, initial encounter ICD Codes: S91.302A - Unspecified open wound, left foot, initial encounter Plan: - Pt is a 61 y/o male with diabetes mellitus, hypertension, peripheral vascular disease s/p right AKA in 2015, and chronic pain who [place] [facility] [place] with complaints of redness and drainage of his left first and second toes. Patient reported that over the weekend he noticed the first and second toes became discolored and there were ulcers on the bottom of his 2 toes. He was seen by his senior hr manager, Dr. Garcia, today who evaluated him and sent him here for admission. - Foot Xray in the ED without evidence of osteomyelitis - MRI Foot (04/12/17) --> No evidence for osteomyelitis. Arterial insufficiency without the plantar arch identified. The dorsalis pedis is well-demonstrated fed by the anterior tibial artery. - Wound culture taken in the ED is growing Staph Sp and GNR - Blood cultures (04/12) with NGTD - Pt is on Vancomycin and Zosyn - Consult podiatry - Hold Plavix for now in case podiatry plans any surgical intervention - Supportive care - Further recommendations as the case develops (2) PVD (peripheral vascular disease) ICD Codes: I73.9 - Peripheral vascular disease, unspecified Status: Acute Plan: - Pt with hx of PAD and has right AKA (3) Chest pain ICD Codes: R07.9 - Chest pain, unspecified Plan: - Serial CE are negative - 2D echo (04/13/17) --> Estimated EF 60%, mild concentric LVH, aortic valve sclerosis - Lexiscan (04/13/17) --> No left ventricular perfusion abnormality identified, normal LV wall motion and calculated EF. (4) DM2 (diabetes mellitus, type 2) ICD Codes: E11.9 - Type 2 diabetes mellitus without complications Status: Chronic Plan: - Hold OHA - NovoLog SSI - Pt also takes Tresiba 18 units HS, we will give Levemir 10 units HS and titrate up as needed - Accu checks (5) HTN (hypertension) ICD Codes: I10 - Essential (primary) hypertension Status: Chronic Plan: - Cont. home meds (Norvasc 5mg po daily, Imdur 60mg po daily) - Monitor (6) Depression ICD Codes: F32.9 - Major depressive disorder, single episode, unspecified Status: Chronic Plan: - Cont. home meds (7) Unilateral AKA ICD Codes: Z89.619 - Acquired absence of unspecified leg above knee Status: Acute Assessment and Plan Patient examined. Assessment and plan formulated with Adry Martinez PA-C. I agree with the above. Adry Martinez Apr 13, 2017 15:35 Chapito Woods DO Apr 19, 2017 10:40
--- NOTE | 2017-04-13 17:49 | PD.CONS ---
History of Present Illness Service Foot and ankle surgery/podiatry Consult Requested By Dr. Juan Woods Reason for Consult Left hallux and second digit infection/cellulitis Primary Care Physician Willis Boyd MD Diagnoses: History of Present Illness Podiatry consulted for this 61-year-old male with past medical history of diabetes mellitus, hypertension, peripheral vascular disease status post right AKA in 2015, and chronic pain for cellulitis to left foot hallux and second digits. Patient was sent by his recycle driver Dr. Tania Garcia who was concerned for ascending cellulitis. He reports pain from his left toes up into his groin as well as chest pain that began yesterday. He reports no shortness of breath, palpitations, nausea/vomiting, or fevers. Review of Systems Constitutional: DENIES: Fatigue, Fever Eyes: DENIES: Blurred vision Ears, nose, mouth, throat: DENIES: Tinnitus Respiratory: DENIES: Cough, Sputum production, Shortness of breath Cardiovascular: COMPLAINS OF: Chest pain, Palpitations Musculoskeletal: COMPLAINS OF: Joint pain, Muscle aches Psychiatric: DENIES: Anxiety, Confusion Past Family Social History Allergies: Coded Allergies: No Known Allergies (Verified Allergy, Unknown, 04/12/17) Past Medical History As dictated in HPI Past Surgical History Right AKA 2015 Active Ordered Medications Current Medications Medications (Trade) Dose Ordered Sig/Eleazar Route Start Time Stop Time Status Last Admin (NS Flush) 2 ml UNSCH PRN IV FLUSH 04/12/17 12:00 (NS Flush) 2 ml BID IV FLUSH 04/12/17 21:00 04/13/17 08:57 (Tylenol) 650 mg Q4H PRN PO 04/12/17 12:00 (Reglan Inj) 5 mg Q6H PRN IV PUSH 04/12/17 12:00 04/13/17 16:39 (Narcan Inj) 0.4 mg UNSCH PRN IV PUSH 04/12/17 12:00 (Milk Of Magnesia Liq) 30 ml Q12H PRN PO 04/12/17 12:00 Piperacillin Sod/ Tazobactam Sod 50 ml @ 100 mls/hr Q6H IV 04/12/17 12:00 04/13/17 16:46 (NovoLOG SUPPLEMENTAL SCALE) 1 ACHS SLIDING SCALE SQ 04/12/17 12:00 04/13/17 16:46 (D50w (Vial) Inj) 50 ml UNSCH PRN IV PUSH 04/12/17 12:00 (Glucagon Inj) 1 mg UNSCH PRN OTHER 04/12/17 12:00 Pharmacy Profile Note ml @ 0 mls/hr UNSCH OTHER 04/12/17 13:00 Vancomycin HCl 1250 mg/Sodium Chloride 262.5 ml @ 262.5 mls/ hr Q18H IV 04/13/17 03:00 04/13/17 03:38 Miscellaneous Information SPECIFIC LAB TO BE DANUTA... ONCE ONCE .XX 04/14/17 14:45 04/14/17 14:46 (Norvasc) 5 mg DAILY PO 04/13/17 09:00 04/13/17 08:55 (Ecotrin Ec) 81 mg DAILY PO 04/13/17 09:00 04/13/17 08:55 (Lipitor) 40 mg DAILY PO 04/13/17 09:00 04/13/17 08:55 (Imdur) 60 mg DAILY PO 04/13/17 09:00 04/13/17 08:55 (Synthroid) 75 mcg SuTuThFr PO 04/13/17 06:00 04/13/17 06:30 (Synthroid) 88 mcg MoWeSa@0600 PO 04/12/17 16:00 04/12/17 17:53 (Protonix) 40 mg BID PO 04/12/17 21:00 04/13/17 08:55 (Lyrica) 75 mg TID PO 04/12/17 18:00 04/13/17 16:46 (Creon 12-38-60) 6 cap TID PO 04/12/17 18:00 04/13/17 16:46 (Levemir Inj) 10 units HS SQ 04/12/17 21:00 04/12/17 20:24 Physical Exam Vital Signs Vital Signs Date Time Temp Pulse Resp B/P (MAP) Pulse Ox O2 Delivery O2 Flow Rate FiO2 04/13/17 15:57 97.7 84 18 130/75 (93) 96 04/13/17 11:59 97.7 76 18 120/74 (89) 97 04/13/17 10:34 70 04/13/17 08:05 97.7 67 19 132/75 (94) 93 04/13/17 04:00 97.8 62 18 114/59 (77) 93 04/13/17 00:00 58 04/13/17 00:00 97.8 65 18 120/68 (85) 93 04/12/17 20:00 98.1 64 18 134/70 (91) 95 Physical Exam GENERAL: This is a well-nourished, well-developed patient, in no apparent distress. SKIN: Left hallux and second digit ulceration HEAD: Atraumatic. EYES: Pupils equal round and reactive. ENT: Airway patent. NECK: Trachea midline. RESPIRATORY: Nonlabored breathing. MUSCULOSKELETAL:. Negative Homans sign bilaterally. NEUROLOGICAL: Awake and alert. Normal speech. Lower extremity physical exam: Vascular: Dorsalis pedis nonpalpable, posterior tibial 1/4. Capillary refill time within normal limits to digits 5 left foot. Edema present left hallux and second digit with associated erythema. Pitting edema noted to left lower extremity. Neuro: Gross sensation intact to bilateral lower extremity. Pinpoint sensation decreased to left lower extremity. No hyperalgesia noted to bilateral lower extremity Dermatology: Left hallux ulcer to distal plantar hallux measuring approximately 1.5 cm x 1.5 cm with 0.1 depth, with fibrotic base and hyperkeratotic periwound border. Left second digit ulcer to distal plantar distal phalanx measuring approximately 1 cm x 1 cm with 0.1 depth, with fibrotic base and hyperkeratotic periwound border. Associated erythema to left hallux and left second digit extending to MPJ. No purulent drainage upon compression. No probe to bone to hallux are second digit, left foot. Musculoskeletal: Tender to palpation to left hallux and second digit. Hammertoes noted 2 through 5 left foot. Laboratory Laboratory Tests Test 04/12/17 20:22 04/13/17 02:50 Total Creatine Kinase 38 90 Troponin I LESS THAN 0.02 LESS THAN 0.02 White Blood Count 9.2 Red Blood Count 4.44 Hemoglobin 13.4 Hematocrit 39.0 Mean Corpuscular Volume 87.9 Mean Corpuscular Hemoglobin 30.1 Mean Corpuscular Hemoglobin Concent 34.2 Red Cell Distribution Width 12.8 Platelet Count 278 Mean Platelet Volume 8.7 Neutrophils (%) (Auto) 62.1 Lymphocytes (%) (Auto) 24.0 Monocytes (%) (Auto) 9.0 Eosinophils (%) (Auto) 3.7 Basophils (%) (Auto) 1.2 Neutrophils # (Auto) 5.7 Lymphocytes # (Auto) 2.2 Monocytes # (Auto) 0.8 Eosinophils # (Auto) 0.3 Basophils # (Auto) 0.1 CBC Comment DIFF FINAL Differential Comment Blood Urea Nitrogen 13 Creatinine 1.09 Random Glucose 78 Calcium Level 9.2 Sodium Level 139 Potassium Level 3.6 Chloride Level 104 Carbon Dioxide Level 27.2 Anion Gap 8 Estimat Glomerular Filtration Rate 69 Date/Time Source Procedure Growth Status 04/12/17 10:30 Blood Peripheral Aerobic Blood Culture - Preliminary NO GROWTH IN 1 DAY Resulted 04/12/17 10:30 Blood Peripheral Anaerobic Blood Culture - Preliminary NO GROWTH IN 1 DAY Resulted 04/12/17 10:35 Wound Toe Gram Stain - Final Resulted 04/12/17 10:35 Wound Culture - Preliminary Staphylococcus Species Gram Negative Luiz Resulted Result Diagram: 04/13/17 0250 04/13/17 0250 Imaging Last Impressions Myocardial Perfusion Scan Nuc Med 04/13/17 0000 Signed Impressions: Service Date/Time: Thursday, April 13, 2017 12:51 - CONCLUSION: 1. No left ventricle perfusion abnormality is identified. 2. Normal left ventricle wall motion and calculated ejection fraction. RISK CATEGORY: Low (<1%% Annual Mortality Rate) Chirag Green MD Foot X-Ray 04/12/17 1024 Signed Impressions: Service Date/Time: Wednesday, April 12, 2017 10:38 - CONCLUSION: 1. Soft tissue swelling of the first digit. There are no findings to indicate osteomyelitis of the adjacent bones. Please note that the radiographic findings of osteomyelitis can take 10-14 days to become apparent. Therefore, suggest followup if clinical suspicion persists for osteomyelitis. 2. Severe small vessel arterial vascular calcification. Chirag Green MD Chest X-Ray 04/12/17 1024 Signed Impressions: Service Date/Time: Wednesday, April 12, 2017 10:35 - CONCLUSION: No acute cardiopulmonary abnormality is identified. Chirag Green MD Foot MRI 04/12/17 0000 Signed Impressions: Service Date/Time: Wednesday, April 12, 2017 13:56 - CONCLUSION: 1. No evidence for osteomyelitis. 2. 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 The dorsalis pedis is well-demonstrated fed by the anterior tibial artery. Blake Edwards MD FACR Assessment and Plan Assessment and Plan 61-year-old male with left hallux and left second digit ulcerations with associated cellulitis Patient examined and evaluated with all questions answered Continue IV antibiotics Wound care orders placed for Santyl and moist to dry dressing Postop shoe to offload left hallux and second digit We will reevaluate patient in 24-48 hours, patient should be able go home on oral antibiotics Patient is at high risk since he has had a right AKA will monitor closely Natasha Smith DPM Apr 13, 2017 17:49
[2017-04-13] MEDS: COLLAGENASE OINT 30 GM TUBE TOPICAL SCH (18:18)
[2017-04-13] MEDS: INSULIN DETEMIR 100 UNITS/ML VIAL SQ SCH (21:00)
--- NOTE | 2017-04-13 22:17 | EKG ---
Date Performed: 04/12/2017 Time Performed: 22:47:42 PTAGE: 61 years EKG: Sinus rhythm LOW QRS VOLTAGE IN EXTREMITY LEADS INFERIOR MYOCARDIAL INFARCTION , PROBABLY OLD ABNORMAL ECG PREVIOUS TRACING : 04/12/2017 16.25 Since the prior tracing, there has been no significant ramirez DOCTOR: Sabine Blanco Interpretating Date/Time 04/13/2017 22:16:22
--- NOTE | 2017-04-13 22:44 | EKG ---
Date Performed: 04/12/2017 Time Performed: 16:25:38 PTAGE: 61 years EKG: Sinus rhythm INFERIOR MYOCARDIAL INFARCTION , PROBABLY OLD ABNORMAL ECG PREVIOUS TRACING : 04/12/2017 10.15 Since the prior tracing, there has been no significant ramirez DOCTOR: Sabine Blanco Interpretating Date/Time 04/13/2017 22:42:48
--- NOTE | 2017-04-13 22:57 | EKG ---
Date Performed: 04/12/2017 Time Performed: 10:15:11 PTAGE: 61 years EKG: Sinus rhythm INFERIOR MYOCARDIAL INFARCTION ABNORMAL ECG PREVIOUS TRACING : 02/28/2015 10.03 Since the prior tracing, there has been no significant ramirez DOCTOR: Sabine Blanco Interpretating Date/Time 04/13/2017 22:54:50
[2017-04-14] VITALS (9 sets, daily range): BP systolic 105–129; BP diastolic 64–70; PULSE 63–72; RESP 18–19; TEMP 97.4–97.8; O2SAT 93–97
[2017-04-14] MEDS: PIPERACIL-TAZO 3.375 GM PREMIX 50 ML IV SCH ×5 (00:01→23:34)
[2017-04-14] MEDS: LEVOTHYROXINE SODIUM 88 MCG TAB PO SCH (06:09)
[2017-04-14] MEDS: INSULIN ASPART SUPPLEMENTAL SCALE SQ SCH ×4 (08:00→21:00)
[2017-04-14] MEDS: ASPIRIN EC 81 MG TABEC PO SCH (08:16)
[2017-04-14] MEDS: PANTOPRAZOLE SOD 40 MG DELAYED RELEASE TAB PO SCH ×2 (08:16→21:47)
[2017-04-14] MEDS: ISOSORBIDE MONONITRATE 60 MG CR TAB (IMDUR) PO SCH (08:17)
[2017-04-14] MEDS: PREGABALIN 75 MG CAP PO SCH ×3 (08:17→17:47)
[2017-04-14] MEDS: amLODIPine BESYLATE 5 MG TAB PO SCH (08:17)
[2017-04-14] MEDS: LIPASE/PROTEASE/AMYLASE (12,000/38,000/60,000) CAP PO SCH ×3 (08:17→17:44)
[2017-04-14] MEDS: ATORVASTATIN 40 MG TAB PO SCH (08:17)
[2017-04-14] MEDS: SODIUM CHLORIDE 0.9% FLUSH 10 ML FLUSH IV FLUSH SCH ×2 (09:00→21:49)
[2017-04-14 09:50] LABS: CREATININE 1.14 MG/DL (0.60-1.30)
--- NOTE | 2017-04-14 12:06 | RADRPT ---
EXAM DATE/TIME: 04/13/2017 00:00 [facility] COMPARISON: No previous studies available for comparison. INDICATIONS : Left foot cellutlitis, diabetes mellitus, hypertension TECHNIQUE: Five-station segmental examination of the lower extremities was performed. Pulsed-cuff waveform tracings and pressures were recorded. Ankle-brachial indices and toe-brachial indices were calculated. PRESSURES (mmHg): Brachial (arm): Right IV SITE Left 119 Left Lower Thigh: Left 183 Left CNO>224 Left CNO>224 Left JOVANY: Left CNO>224 TBI: Left cuff unable to fit around toe PULSED CUFF WAVEFORMS: Demonstrate normal amplitude bilaterally. CONCLUSION: Noncompressibility of distal stations on the left. No definite inflow abnormalities. Toe pressures could not be measured Chirag Del Real MD on April 14, 2017 at 12:05 Board Certified Radiologist. This report was verified electronically.
[2017-04-14] MEDS: COLLAGENASE OINT 30 GM TUBE TOPICAL SCH (12:52)
[2017-04-14] MEDS ORDERED: PHARMACY ORDERED LAB ONE (14:45)
[2017-04-14] MEDS: VANCOMYCIN INJ 1,250 MG in SODIUM CHLOR 0.9% 250 ML INJ 250 ML IV SCH (15:00)
--- NOTE | 2017-04-14 15:38 | HHI.PR ---
Subjective Remarks No new complaints Objective Vitals Vital Signs Date Time Temp Pulse Resp B/P (MAP) Pulse Ox O2 Delivery O2 Flow Rate FiO2 04/14/17 11:35 97.4 66 18 129/64 (85) 95 04/14/17 07:30 97.4 65 19 105/70 (82) 95 04/14/17 04:00 97.8 66 18 114/66 (82) 93 04/14/17 03:04 72 04/14/17 00:00 97.8 72 18 119/69 (86) 94 04/13/17 20:00 98.2 82 18 128/72 (90) 94 04/13/17 15:57 97.7 84 18 130/75 (93) 96 04/14/17 04/14/17 04/15/17 15:00 23:00 07:00 # Voids 3 Result Diagram: 04/13/17 0250 04/14/17 0817 Other Results Laboratory Tests Test 04/12/17 10:20 04/12/17 20:22 04/13/17 02:50 04/14/17 08:17 White Blood Count 11.6 TH/MM3 9.2 TH/MM3 Red Blood Count 4.48 MIL/MM3 4.44 MIL/MM3 Hemoglobin 13.6 GM/DL 13.4 GM/DL Hematocrit 40.0 % 39.0 % Mean Corpuscular Volume 89.2 FL 87.9 FL Mean Corpuscular Hemoglobin 30.3 PG 30.1 PG Mean Corpuscular Hemoglobin Concent 34.0 % 34.2 % Red Cell Distribution Width 13.2 % 12.8 % Platelet Count 267 TH/MM3 278 TH/MM3 Mean Platelet Volume 9.3 FL 8.7 FL Neutrophils (%) (Auto) 75.9 % 62.1 % Lymphocytes (%) (Auto) 13.6 % 24.0 % Monocytes (%) (Auto) 9.0 % 9.0 % Eosinophils (%) (Auto) 1.1 % 3.7 % Basophils (%) (Auto) 0.4 % 1.2 % Neutrophils # (Auto) 8.8 TH/MM3 5.7 TH/MM3 Lymphocytes # (Auto) 1.6 TH/MM3 2.2 TH/MM3 Monocytes # (Auto) 1.0 TH/MM3 0.8 TH/MM3 Eosinophils # (Auto) 0.1 TH/MM3 0.3 TH/MM3 Basophils # (Auto) 0.0 TH/MM3 0.1 TH/MM3 CBC Comment DIFF FINAL DIFF FINAL Differential Comment Prothrombin Time 10.3 SEC Prothromb Time International Ratio 1.0 RATIO Activated Partial Thromboplast Time 27.5 SEC Blood Urea Nitrogen 17 MG/DL 13 MG/DL Creatinine 1.25 MG/DL 1.09 MG/DL 1.14 MG/DL Random Glucose 403 MG/DL 78 MG/DL Total Protein 7.8 GM/DL Albumin 3.6 GM/DL Calcium Level 9.0 MG/DL 9.2 MG/DL Alkaline Phosphatase 144 U/L Aspartate Amino Transf (AST/SGOT) 10 U/L Alanine Aminotransferase (ALT/SGPT) 12 U/L Total Bilirubin 0.4 MG/DL Sodium Level 135 MEQ/L 139 MEQ/L Potassium Level 4.3 MEQ/L 3.6 MEQ/L Chloride Level 99 MEQ/L 104 MEQ/L Carbon Dioxide Level 26.6 MEQ/L 27.2 MEQ/L Anion Gap 9 MEQ/L 8 MEQ/L Estimat Glomerular Filtration Rate 59 ML/MIN 69 ML/MIN 66 ML/MIN Total Creatine Kinase 44 U/L 38 U/L 90 U/L Troponin I LESS THAN 0.02 NG/ML LESS THAN 0.02 NG/ML LESS THAN 0.02 NG/ML Test 04/14/17 14:55 Vancomycin Level Trough 12.6 MCG/ML Imaging Last Impressions Foot X-Ray 04/12/17 1024 Signed Impressions: Service Date/Time: Wednesday, April 12, 2017 10:38 - CONCLUSION: 1. Soft tissue swelling of the first digit. There are no findings to indicate osteomyelitis of the adjacent bones. Please note that the radiographic findings of osteomyelitis can take 10-14 days to become apparent. Therefore, suggest followup if clinical suspicion persists for osteomyelitis. 2. Severe small vessel arterial vascular calcification. Chirag Green MD Chest X-Ray 04/12/17 1024 Signed Impressions: Service Date/Time: Wednesday, April 12, 2017 10:35 - CONCLUSION: No acute cardiopulmonary abnormality is identified. Chirag Green MD Foot MRI 04/12/17 0000 Signed Impressions: Service Date/Time: Wednesday, April 12, 2017 13:56 - CONCLUSION: 1. No evidence for osteomyelitis. 2. 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 The dorsalis pedis is well-demonstrated fed by the anterior tibial artery. Blake Edwards MD FACR Foot Xray (04/12/17) - Soft tissue swelling of the first digit. There are no findings to indicate osteomyelitis of the adjacent bone. - Severe small vessel arterial vascular calcifications CXR (04/12/17) - No acute cardiopulmonary abnormality identified Objective Remarks General: NAD, AAOx3 Chest: CTA Cardiac: Regular Abd: +BS, soft ND/NT Ext: Right AKA. Left foot first and second toes with circumferential erythema and black eschar ulcerations with some serous drainage on the plantar aspects. A/P Problem List: (1) Unspecified open wound, left foot, initial encounter ICD Codes: S91.302A - Unspecified open wound, left foot, initial encounter Plan: - Pt is a 61 y/o male with diabetes mellitus, hypertension, peripheral vascular disease s/p right AKA in 2015, and chronic pain who presented to the ED at [facility] [place] on 04/12/17 with complaints of redness and drainage of his left first and second toes. Patient reported that over the weekend he noticed the first and second toes became discolored and there were ulcers on the bottom of his 2 toes. He was seen by his senior sas developer, Dr. Garcia, today who evaluated him and sent him here for admission. - Foot Xray in the ED without evidence of osteomyelitis - MRI Foot (04/12/17) --> No evidence for osteomyelitis. Arterial insufficiency without the plantar arch identified. The dorsalis pedis is well-demonstrated fed by the anterior tibial artery. - Wound culture taken in the ED is growing Staph Sp and GNR - Blood cultures (04/12) with NGTD - Pt is on Vancomycin and Zosyn - Consult podiatry. Recommending Continue IV antibiotics Wound care orders placed for Santyl and moist to dry dressing Postop shoe to offload left hallux and second digit Podiatry will reevaluate patient in 24-48 hours, patient should be able go home on oral antibiotics Patient is at high risk since he has had a right AKA will monitor closely - Hold Plavix for now in case podiatry plans any surgical intervention - Supportive care - Further recommendations as the case develops (2) PVD (peripheral vascular disease) ICD Codes: I73.9 - Peripheral vascular disease, unspecified Status: Acute Plan: - Pt with hx of PAD and has right AKA (3) Chest pain ICD Codes: R07.9 - Chest pain, unspecified Plan: - Serial CE are negative - 2D echo (04/13/17) --> Estimated EF 60%, mild concentric LVH, aortic valve sclerosis - Lexiscan (04/13/17) --> No left ventricular perfusion abnormality identified, normal LV wall motion and calculated EF. (4) DM2 (diabetes mellitus, type 2) ICD Codes: E11.9 - Type 2 diabetes mellitus without complications Status: Chronic Plan: - Hold OHA - NovoLog SSI - Pt also takes Tresiba 18 units HS, we will give Levemir 10 units HS and titrate up as needed - Accu checks - patient had blood glucose of 313 04/14 @1510- counselled encouraged to maintain a diabetic diet (5) HTN (hypertension) ICD Codes: I10 - Essential (primary) hypertension Status: Chronic Plan: - Cont. home meds (Norvasc 5mg po daily, Imdur 60mg po daily) - Monitor (6) Depression ICD Codes: F32.9 - Major depressive disorder, single episode, unspecified Status: Chronic Plan: - Cont. home meds (7) Unilateral AKA ICD Codes: Z89.619 - Acquired absence of unspecified leg above knee Status: Acute Assessment and Plan Patient examined. Assessment and plan formulated with Ayala Richey PA-C. I agree with the above. Ayala Richey Apr 14, 2017 15:38 Chapito Woods DO Apr 19, 2017 10:40
[2017-04-14] MEDS: INSULIN DETEMIR 100 UNITS/ML VIAL SQ SCH (21:47)
[2017-04-15] VITALS (8 sets, daily range): BP systolic 116–173; BP diastolic 61–82; PULSE 55–84; RESP 17–18; TEMP 97.4–98.3; O2SAT 92–100
[2017-04-15] MEDS: LEVOTHYROXINE SODIUM 75 MCG TAB PO SCH (05:45)
[2017-04-15] MEDS: PIPERACIL-TAZO 3.375 GM PREMIX 50 ML IV SCH ×4 (05:48→23:36)
[2017-04-15] MEDS: INSULIN ASPART SUPPLEMENTAL SCALE SQ SCH ×4 (08:00→21:41)
[2017-04-15] MEDS: LIPASE/PROTEASE/AMYLASE (12,000/38,000/60,000) CAP PO SCH ×3 (08:09→18:50)
[2017-04-15] MEDS: PREGABALIN 75 MG CAP PO SCH ×3 (08:10→18:50)
[2017-04-15] MEDS: ASPIRIN EC 81 MG TABEC PO SCH (08:10)
[2017-04-15] MEDS: ISOSORBIDE MONONITRATE 60 MG CR TAB (IMDUR) PO SCH (08:10)
[2017-04-15] MEDS: PANTOPRAZOLE SOD 40 MG DELAYED RELEASE TAB PO SCH ×2 (08:10→21:41)
[2017-04-15] MEDS: ATORVASTATIN 40 MG TAB PO SCH (08:10)
[2017-04-15] MEDS: amLODIPine BESYLATE 5 MG TAB PO SCH (08:10)
--- NOTE | 2017-04-15 08:10 | HHI.DCPOC ---
Discharge Care Plan Diagnosis: (1) PVD (peripheral vascular disease) (2) Unspecified open wound, left foot, initial encounter (3) DM2 (diabetes mellitus, type 2) Goals to Promote Your Health * To prevent worsening of your condition and complications * To maintain your health at the optimal level Directions to Meet Your Goals Take your medications as prescribed Follow your dietary instruction Follow activity as directed Keep your appointments as scheduled Take your immunizations and boosters as scheduled If your symptoms worsen call your PCP, if no PCP go to Urgent Care Center or Emergency Room Smoking is Dangerous to Your Health. Avoid second hand smoke Call the 24-hour hour crisis hotline for domestic abuse at Ayala Richey Apr 15, 2017 08:10 Chapito Woods DO Apr 19, 2017 10:42
--- NOTE | 2017-04-15 08:11 | HHI.FF ---
Face to Face Verification Diagnosis: (1) PVD (peripheral vascular disease) (2) HTN (hypertension) (3) Unspecified open wound, left foot, initial encounter (4) DM2 (diabetes mellitus, type 2) Physical Therapy Order: Evaluate and Treat, Improve ambulation Home Health Nursing Order: Medical education Signs/symptoms of disease process Diabetic education Medication education-adverse effect Wound care and dressing changes Instructions: Please apply Santyl with moist to dry dressing to left hallux distal phalanx plantar ulcer and left second digit distal phalanx plantar ulcer. Dressing to be changed daily. I have seen patient Chance Penn Jr Namrata on 04/15/17. My clinical findings support the need for the requested home health care services because: Ltd mobility - disease progression High risk of falls I certify that my clinical findings support that this patient is homebound because: Unsteady gait/balance Ayala Richey Apr 15, 2017 08:11 Chapito Woods DO Apr 16, 2017 15:21
[2017-04-15] MEDS: VANCOMYCIN INJ 1,500 MG in SODIUM CHLORID 0.9% 500 ML INJ 500 ML IV SCH (08:26)
[2017-04-15] MEDS: SODIUM CHLORIDE 0.9% FLUSH 10 ML FLUSH IV FLUSH SCH ×2 (08:40→23:37)
--- NOTE | 2017-04-15 15:04 | HHI.PR ---
Subjective Remarks No new complaints Objective Vitals Vital Signs Date Time Temp Pulse Resp B/P (MAP) Pulse Ox O2 Delivery O2 Flow Rate FiO2 04/15/17 12:00 97.9 84 17 124/76 (92) 97 04/15/17 08:00 98.3 67 18 122/71 (88) 94 04/15/17 04:00 97.4 72 18 116/65 (82) 94 04/15/17 00:00 97.8 67 18 121/61 (81) 92 04/14/17 20:00 97.5 65 18 129/65 (86) 95 04/14/17 16:23 97.5 63 18 122/65 (84) 97 04/14/17 16:21 65 04/15/17 04/15/17 04/16/17 15:00 23:00 07:00 # Voids 3 Result Diagram: 04/13/17 0250 04/14/17 0817 Other Results Laboratory Tests Test 04/12/17 20:22 04/13/17 02:50 04/14/17 08:17 04/14/17 14:55 Total Creatine Kinase 38 U/L 90 U/L Troponin I LESS THAN 0.02 NG/ML LESS THAN 0.02 NG/ML White Blood Count 9.2 TH/MM3 Red Blood Count 4.44 MIL/MM3 Hemoglobin 13.4 GM/DL Hematocrit 39.0 % Mean Corpuscular Volume 87.9 FL Mean Corpuscular Hemoglobin 30.1 PG Mean Corpuscular Hemoglobin Concent 34.2 % Red Cell Distribution Width 12.8 % Platelet Count 278 TH/MM3 Mean Platelet Volume 8.7 FL Neutrophils (%) (Auto) 62.1 % Lymphocytes (%) (Auto) 24.0 % Monocytes (%) (Auto) 9.0 % Eosinophils (%) (Auto) 3.7 % Basophils (%) (Auto) 1.2 % Neutrophils # (Auto) 5.7 TH/MM3 Lymphocytes # (Auto) 2.2 TH/MM3 Monocytes # (Auto) 0.8 TH/MM3 Eosinophils # (Auto) 0.3 TH/MM3 Basophils # (Auto) 0.1 TH/MM3 CBC Comment DIFF FINAL Differential Comment Blood Urea Nitrogen 13 MG/DL Creatinine 1.09 MG/DL 1.14 MG/DL Random Glucose 78 MG/DL Calcium Level 9.2 MG/DL Sodium Level 139 MEQ/L Potassium Level 3.6 MEQ/L Chloride Level 104 MEQ/L Carbon Dioxide Level 27.2 MEQ/L Anion Gap 8 MEQ/L Estimat Glomerular Filtration Rate 69 ML/MIN 66 ML/MIN Vancomycin Level Trough 12.6 MCG/ML Imaging Last Impressions Foot X-Ray 04/12/17 1024 Signed Impressions: Service Date/Time: Wednesday, April 12, 2017 10:38 - CONCLUSION: 1. Soft tissue swelling of the first digit. There are no findings to indicate osteomyelitis of the adjacent bones. Please note that the radiographic findings of osteomyelitis can take 10-14 days to become apparent. Therefore, suggest followup if clinical suspicion persists for osteomyelitis. 2. Severe small vessel arterial vascular calcification. Chirag Green MD Chest X-Ray 04/12/17 1024 Signed Impressions: Service Date/Time: Wednesday, April 12, 2017 10:35 - CONCLUSION: No acute cardiopulmonary abnormality is identified. Chirag Green MD Foot MRI 04/12/17 0000 Signed Impressions: Service Date/Time: Wednesday, April 12, 2017 13:56 - CONCLUSION: 1. No evidence for osteomyelitis. 2. 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 The dorsalis pedis is well-demonstrated fed by the anterior tibial artery. Blake Edwards MD FACR Foot Xray (04/12/17) - Soft tissue swelling of the first digit. There are no findings to indicate osteomyelitis of the adjacent bone. - Severe small vessel arterial vascular calcifications CXR (04/12/17) - No acute cardiopulmonary abnormality identified Objective Remarks General: NAD, AAOx3 Chest: CTA Cardiac: Regular Abd: +BS, soft ND/NT Ext: Right AKA. Left foot first and second toes with circumferential erythema and black eschar ulcerations with some serous drainage on the plantar aspects. A/P Problem List: (1) Unspecified open wound, left foot, initial encounter ICD Codes: S91.302A - Unspecified open wound, left foot, initial encounter Plan: - Pt is a 61 y/o male with diabetes mellitus, hypertension, peripheral vascular disease s/p right AKA in 2016, and chronic pain who [place] [facility] [place] with complaints of redness and drainage of his left first and second toes. Patient reported that over the weekend he noticed the first and second toes became discolored and there were ulcers on the bottom of his 2 toes. He was seen by his cad librarian, Dr. Garcia, today who evaluated him and sent him here for admission. - Foot Xray in the ED without evidence of osteomyelitis - MRI Foot (04/12/17) --> No evidence for osteomyelitis. Arterial insufficiency without the plantar arch identified. The dorsalis pedis is well-demonstrated fed by the anterior tibial artery. - Wound culture taken in the ED is growing Staph Sp and GNR - Blood cultures (04/12) with NGTD - Pt is on Vancomycin and Zosyn - Consult podiatry. Recommending Continue IV antibiotics Wound care orders placed for Santyl and moist to dry dressing Postop shoe to offload left hallux and second digit Podiatry will reevaluate patient in 24-48 hours, patient should be able go home on oral antibiotics Patient is at high risk since he has had a right AKA will monitor closely - 04/[address] Priest and Dr. Smith. cellulitis still present. Will Consult ID for assistance and abx recommendations. - 04/15 Dr. Smith plans for further bedside debridement this evening - Hold Plavix for now in case podiatry plans any surgical intervention - Supportive care - Further recommendations as the case develops (2) PVD (peripheral vascular disease) ICD Codes: I73.9 - Peripheral vascular disease, unspecified Status: Acute Plan: - Pt with hx of PAD and has right AKA (3) Chest pain ICD Codes: R07.9 - Chest pain, unspecified Plan: - Serial CE are negative - 2D echo (04/13/17) --> Estimated EF 60%, mild concentric LVH, aortic valve sclerosis - Lexiscan (04/13/17) --> No left ventricular perfusion abnormality identified, normal LV wall motion and calculated EF. (4) DM2 (diabetes mellitus, type 2) ICD Codes: E11.9 - Type 2 diabetes mellitus without complications Status: Chronic Plan: - Hold OHA - NovoLog SSI - Pt also takes Tresiba 18 units HS, we will give Levemir 10 units HS and titrate up as needed - Accu checks - patient had blood glucose of 313 04/14 @1510- counselled encouraged to maintain a diabetic diet (5) HTN (hypertension) ICD Codes: I10 - Essential (primary) hypertension Status: Chronic Plan: - Cont. home meds (Norvasc 5mg po daily, Imdur 60mg po daily) - Monitor (6) Depression ICD Codes: F32.9 - Major depressive disorder, single episode, unspecified Status: Chronic Plan: - Cont. home meds (7) Unilateral AKA ICD Codes: Z89.619 - Acquired absence of unspecified leg above knee Status: Acute Assessment and Plan Patient examined. Assessment and plan formulated with Ayala Richey PA-C. I agree with the above. Ayala Richey Apr 15, 2017 15:04 Chapito Woods DO Apr 19, 2017 10:41
[2017-04-15] MEDS: COLLAGENASE OINT 30 GM TUBE TOPICAL SCH (18:50)
[2017-04-15] MEDS ORDERED: LIDOCAINE HCL 1% 20 ML VIAL OTHER ONE (19:00)
[2017-04-15] MEDS: INSULIN DETEMIR 100 UNITS/ML VIAL SQ SCH (21:41)
--- NOTE | 2017-04-15 23:39 | HHI.PR ---
Subjective Remarks Patient seen bedside with Dr. Woods in [facility]. Patient denies any nausea vomiting fevers or chills. Patient states his stay has been pleasant no concerns at this time. Objective Vital Signs Date Time Temp Pulse Resp B/P (MAP) Pulse Ox O2 Delivery O2 Flow Rate FiO2 04/15/17 20:15 98.0 68 18 132/77 (95) 94 04/15/17 16:00 97.7 55 17 173/82 (112) 100 04/15/17 13:00 73 04/15/17 12:00 97.9 84 17 124/76 (92) 97 04/15/17 08:00 98.3 67 18 122/71 (88) 94 04/15/17 04:00 97.4 72 18 116/65 (82) 94 04/15/17 00:00 97.8 67 18 121/61 (81) 92 I/O 04/15/17 04/15/17 04/15/17 04/16/17 04/16/17 04/16/17 06:59 14:59 22:59 06:59 14:59 22:59 Intake Total 100 ml Output Total 350 ml Balance 100 ml -350 ml IV Total 100 ml Output Urine Total 350 ml # Voids 3 Result Diagram: 04/13/17 0250 04/14/17 0817 Imaging Last Impressions Myocardial Perfusion Scan Nuc Med 04/13/17 0000 Signed Impressions: Service Date/Time: Thursday, April 13, 2017 12:51 - CONCLUSION: 1. No left ventricle perfusion abnormality is identified. 2. Normal left ventricle wall motion and calculated ejection fraction. RISK CATEGORY: Low (<1%% Annual Mortality Rate) Chirag Green MD Foot X-Ray 04/12/17 1024 Signed Impressions: Service Date/Time: Wednesday, April 12, 2017 10:38 - CONCLUSION: 1. Soft tissue swelling of the first digit. There are no findings to indicate osteomyelitis of the adjacent bones. Please note that the radiographic findings of osteomyelitis can take 10-14 days to become apparent. Therefore, suggest followup if clinical suspicion persists for osteomyelitis. 2. Severe small vessel arterial vascular calcification. Chirag Green MD Chest X-Ray 04/12/17 1024 Signed Impressions: Service Date/Time: Wednesday, April 12, 2017 10:35 - CONCLUSION: No acute cardiopulmonary abnormality is identified. Chirag Green MD Foot MRI 04/12/17 0000 Signed Impressions: Service Date/Time: Wednesday, April 12, 2017 13:56 - CONCLUSION: 1. No evidence for osteomyelitis. 2. 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 The dorsalis pedis is well-demonstrated fed by the anterior tibial artery. Blake Edwards MD FACR Other Results Microbiology Date/Time Source Procedure Growth Status 04/12/17 10:30 Blood Peripheral Aerobic Blood Culture - Preliminary NO GROWTH IN 3 DAYS Resulted 04/12/17 10:30 Blood Peripheral Anaerobic Blood Culture - Preliminary NO GROWTH IN 3 DAYS Resulted 04/12/17 10:35 Wound Toe Gram Stain - Final Resulted 04/12/17 10:35 Wound Culture - Preliminary Staphylococcus Aureus Acinetobacter Baumannii/Haemol Resulted Objective Remarks Lower extremity physical exam: Vascular: Dorsalis pedis nonpalpable, posterior tibial 1/4. Capillary refill time within normal limits to digits 5 left foot. Edema present left hallux and second digit with associated erythema. Pitting edema noted to left lower extremity. Neuro: Gross sensation intact to bilateral lower extremity. Pinpoint sensation decreased to left lower extremity. No hyperalgesia noted to bilateral lower extremity Dermatology: Left hallux ulcer to distal plantar hallux measuring approximately 1.5 cm x 1.5 cm with 0.1 depth, with fibrotic base and hyperkeratotic periwound border. Left second digit ulcer to distal plantar distal phalanx measuring approximately 1 cm x 1 cm with 0.1 depth, with fibrotic base and hyperkeratotic periwound border. Associated erythema to left hallux and left second digit receding however still present to hallux and second digit.. No purulent drainage upon compression. No probe to bone to hallux are second digit, left foot. Musculoskeletal: Tender to palpation to left hallux and second digit. Hammertoes noted 2 through 5 left foot. Medications and IVs Last Impressions Myocardial Perfusion Scan Nuc Med 04/13/17 0000 Signed Impressions: Service Date/Time: Thursday, April 13, 2017 12:51 - CONCLUSION: 1. No left ventricle perfusion abnormality is identified. 2. Normal left ventricle wall motion and calculated ejection fraction. RISK CATEGORY: Low (<1%% Annual Mortality Rate) Chirag Green MD Foot X-Ray 04/12/17 1024 Signed Impressions: Service Date/Time: Wednesday, April 12, 2017 10:38 - CONCLUSION: 1. Soft tissue swelling of the first digit. There are no findings to indicate osteomyelitis of the adjacent bones. Please note that the radiographic findings of osteomyelitis can take 10-14 days to become apparent. Therefore, suggest followup if clinical suspicion persists for osteomyelitis. 2. Severe small vessel arterial vascular calcification. Chirag Green MD Chest X-Ray 04/12/17 1024 Signed Impressions: Service Date/Time: Wednesday, April 12, 2017 10:35 - CONCLUSION: No acute cardiopulmonary abnormality is identified. Chirag Green MD Foot MRI 04/12/17 0000 Signed Impressions: Service Date/Time: Wednesday, April 12, 2017 13:56 - CONCLUSION: 1. No evidence for osteomyelitis. 2. 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 The dorsalis pedis is well-demonstrated fed by the anterior tibial artery. Blake Edwards MD FACR Assessment and Plan Assessment and Plan 61-year-old male with left hallux and left second digit ulcerations with associated cellulitis Patient examined and evaluated with all questions answered Decision was made bedside with Dr. Woods for debridement and irrigation of left hallux and second digit ulcerations as there has been mild improvement to hallux and second digit Patient to continue IV antibiotics We will consult infectious disease Continue wound care orders as placed Wound care orders placed for Santyl and moist to dry dressing Postop shoe to offload left hallux and second digit Patient is at high risk since he has had a right AKA will monitor closely Procedure: Appropriate consent signed for left hallux and left second digit bedside debridement. Nurse present bedside consent signed and dated, witnessed. Appropriate timeout was taken identifying the correct patient, procedure and correct site surgery. Following sterile prep 15 blade was utilized to remove all necrotic nonviable tissue from hallux There was noted to be granular tissue with appropriate bleeding noted to ulceration. 15 blade was also utilized to remove all necrotic nonviable tissue from second digit. There was noted to be granular tissue with appropriate bleeding noted to ulceration. Copious irrigation was then performed to the left hallux left second digit. Santyl, and moist to dry dressing was then applied to left hallux and left second digit. Natasha Smith DPM Apr 15, 2017 23:39
[2017-04-16] VITALS (8 sets, daily range): BP systolic 116–129; BP diastolic 62–94; PULSE 61–67; RESP 18; TEMP 97.5–98.3; O2SAT 94–96
[2017-04-16] MEDS: VANCOMYCIN INJ 1,500 MG in SODIUM CHLORID 0.9% 500 ML INJ 500 ML IV SCH (03:36)
[2017-04-16] MEDS: PIPERACIL-TAZO 3.375 GM PREMIX 50 ML IV SCH ×2 (06:00→12:20)
[2017-04-16] MEDS: LEVOTHYROXINE SODIUM 75 MCG TAB PO SCH (06:00)
[2017-04-16] MEDS: INSULIN ASPART SUPPLEMENTAL SCALE SQ SCH ×2 (08:00→12:18)
[2017-04-16] MEDS: PREGABALIN 75 MG CAP PO SCH ×2 (08:34→12:18)
[2017-04-16] MEDS: SODIUM CHLORIDE 0.9% FLUSH 10 ML FLUSH IV FLUSH SCH (08:35)
[2017-04-16] MEDS: ATORVASTATIN 40 MG TAB PO SCH (08:35)
[2017-04-16] MEDS: ASPIRIN EC 81 MG TABEC PO SCH (08:35)
[2017-04-16] MEDS: amLODIPine BESYLATE 5 MG TAB PO SCH (08:35)
[2017-04-16] MEDS: PANTOPRAZOLE SOD 40 MG DELAYED RELEASE TAB PO SCH (08:35)
[2017-04-16] MEDS: ISOSORBIDE MONONITRATE 60 MG CR TAB (IMDUR) PO SCH (08:35)
[2017-04-16] MEDS: COLLAGENASE OINT 30 GM TUBE TOPICAL SCH (08:36)
[2017-04-16] MEDS: LIPASE/PROTEASE/AMYLASE (12,000/38,000/60,000) CAP PO SCH ×2 (08:36→12:19)
--- NOTE | 2017-04-16 14:20 | PD.ID.CON ---
History of Present Illness Service ID Consult Requested By Reason for Consult Evaluation and Mment of left great toe and 2nd toe superficial infected ulcers plus left foot cellulitis. Primary Care Physician Willis Boyd MD Diagnoses: History of Present Illness Mr. Ott is a pleasant 61 y/o male with diabetes mellitus, hypertension, peripheral vascular disease s/p right AKA in 2016, and chronic pain who presented to the ED at [facility] on 04/12/17 with complaints of redness and drainage of his left first and second toes. Patient reported that over the weekend he noticed the first and second toes became discolored. He had his check it and she noted that there were ulcers on the bottom of his 2 toes. He was seen by his tourist escort, Dr. Garcia, who evaluated him and sent him here for admission. He reports that the pain from his foot runs up his leg into his groin. He also reported some left chest pain that began yesterday, rated as a 6 out of 10 on the pain scale. It occurs sporadically and lasts for varying amounts of time. It can vary from a sharp pain to a dull ache, not exertional. No reported SOB, palpitations, nausea/vomiting, diaphoresis, or weakness. Evaluation and Mment of left great toe and 2nd toe superficial infected ulcers plus left foot cellulitis. Review of Systems ROS Limitations: Poor Historian Constitutional: DENIES: Diaphoretic episodes, Fatigue, Fever, Weight gain, Weight loss, Chills, Dizziness, Change in appetite, Night Sweats Endocrine: DENIES: Heat/cold intolerance, Polydipsia, Polyuria, Polyphagia Eyes: DENIES: Blurred vision, Diplopia, Eye inflammation, Eye pain, Vision loss , Photosensitivity, Double Vision Ears, nose, mouth, throat: DENIES: Tinnitus, Hearing loss, Vertigo, Nasal discharge, Oral lesions, Throat pain, Hoarseness, Ear Pain, Running Nose, Epistaxis, Sinus Pain, Toothache, Odynophagia Respiratory: DENIES: Apneas, Cough, Snoring, Wheezing, Hemoptysis, Sputum production, Shortness of breath Gastrointestinal: DENIES: Abdominal pain, Black stools, Bloody stools, Constipation, Diarrhea, Nausea, Vomiting, Difficulty Swallowing, Anorexia Genitourinary: DENIES: Sexual dysfunction, Urinary frequency, Urinary incontinence, Urgency, Hematuria, Dysuria, Nocturia, Penile Discharge, Testicular Pain, Testicular Swelling Musculoskeletal: DENIES: Joint pain, Muscle aches, Stiffness, Joint Swelling, Back pain, Neck pain Integumentary: COMPLAINS OF: Abnormal pigmentation, DENIES: Nail changes, Pruritus, Rash Hematologic/lymphatic: DENIES: Bruising, Lymphadenopathy Immunologic/allergic: DENIES: Eczema, Urticaria Neurologic: DENIES: Abnormal gait, Headache, Localized weakness, Paresthesias, Seizures, Speech Problems, Tremor, Poor Balance Psychiatric: DENIES: Anxiety, Confusion, Mood changes, Depression, Hallucinations, Agitation, Suicidal Ideation, Homicidal Ideation, Delusions Except as stated in HPI: all other systems reviewed are Neg Past Family Social History Allergies: Coded Allergies: No Known Allergies (Verified Allergy, Unknown, 04/12/17) Past Medical History PVD s/p right AKA Type 2 diabetes mellitus with polyneuropathy Gout Hypertension Hyperlipidemia Insomnia Lumbar radiculopathy Chronic pancreatitis GERD Chronic pancreatitis History of seizure disorder Depression Hypothyroidism B12 deficiency Bilateral cataracts Chronic pain Decreased hearing Lumbar disc degeneration Osteoarthritis Past Surgical History Right AKA Appendectomy Cataract surgery Lumbar Laminectomy Tonsillectomy Skin biopsy Esophageal gastroduodenoscopy Two endovascular procedures Reported Medications Reported Meds & Active Scripts Active Reported Vitamin D3 (Cholecalciferol) 1,000 Unit Tab 1,000 Units PO DAILY Vitamin B-12 (Cyanocobalamin) 1,000 Mcg Tab 1,000 Mcg PO DAILY Lyrica (Pregabalin) 75 Mg Cap 75 Mg PO TID Pantoprazole (Pantoprazole Sodium) 40 Mg Tab 40 Mg PO BID Take 30 minutes before breakfast and dinner Creon (Pancrelipase) 36,000-114,000-180,000 Units Cap 2 Cap PO TID Multiple Vitamin 1 Tab 1 Tab PO DAILY Metformin (Metformin HCl) 850 Mg Tab 850 Mg PO BIDPC [Magnesium 1000MG] 1,000 Mg PO DAILY Tradjenta (Linagliptin) 5 Mg Tab 5 Mg PO DAILY Synthroid (Levothyroxine Sodium) 88 Mcg Tab 88 Mcg PO MOWESA Take 1 tablet (88mcg) daily on Wednesday,Wednesday and Wednesday Synthroid (Levothyroxine Sodium) 75 Mcg Tab 75 Mcg PO SUTUTHFR Take 1 tablet (75mcg) daily on Wednesday,Wednesday, and Wednesday Isosorbide Mononitrate ER (Isosorbide Mononitrate) 60 Mg Tab 60 Mg PO DAILY Tresiba Flextouch Pen Inj (Insulin Degludec Inj) 300 unit/3 ML Pen 18 Units SQ HS Novolog Inj (Insulin Aspart) 1,000 Unit/10 Ml Vial 6 Units SQ TIDAC Plavix (Clopidogrel Bisulfate) 75 Mg Tab 75 Mg PO DAILY Cilostazol 100 Mg Tab 100 Mg PO BID Calcium (Calcium Carbonate) 600 Mg Calcium (1500 Mg) Tab 600 Mg PO BID Lipitor (Atorvastatin Calcium) 40 Mg Tab 40 Mg PO DAILY Aspirin Adult Low Strength (Aspirin) 81 Mg Tabdr 81 Mg PO DAILY Norvasc (Amlodipine Besylate) 5 Mg Tab 5 Mg PO DAILY Active Ordered Medications Current Medications Medications (Trade) Dose Ordered Sig/Eleazar Route Start Time Stop Time Status Last Admin (NS Flush) 2 ml UNSCH PRN IV FLUSH 04/12/17 12:00 (NS Flush) 2 ml BID IV FLUSH 04/12/17 21:00 04/16/17 08:35 (Tylenol) 650 mg Q4H PRN PO 04/12/17 12:00 (Reglan Inj) 5 mg Q6H PRN IV PUSH 04/12/17 12:00 04/13/17 16:39 (Narcan Inj) 0.4 mg UNSCH PRN IV PUSH 04/12/17 12:00 (Milk Of Magnesia Liq) 30 ml Q12H PRN PO 04/12/17 12:00 Piperacillin Sod/ Tazobactam Sod 50 ml @ 100 mls/hr Q6H IV 04/12/17 12:00 04/16/17 12:20 (NovoLOG SUPPLEMENTAL SCALE) 1 ACHS SLIDING SCALE SQ 04/12/17 12:00 04/16/17 12:18 (D50w (Vial) Inj) 50 ml UNSCH PRN IV PUSH 04/12/17 12:00 (Glucagon Inj) 1 mg UNSCH PRN OTHER 04/12/17 12:00 Pharmacy Profile Note ml @ 0 mls/hr UNSCH OTHER 04/12/17 13:00 (Norvasc) 5 mg DAILY PO 04/13/17 09:00 04/16/17 08:35 (Ecotrin Ec) 81 mg DAILY PO 04/13/17 09:00 04/16/17 08:35 (Lipitor) 40 mg DAILY PO 04/13/17 09:00 04/16/17 08:35 (Imdur) 60 mg DAILY PO 04/13/17 09:00 04/16/17 08:35 (Synthroid) 75 mcg SuTuThFr PO 04/13/17 06:00 04/16/17 06:00 (Synthroid) 88 mcg MoWeSa@0600 PO 04/12/17 16:00 04/14/17 06:09 (Protonix) 40 mg BID PO 04/12/17 21:00 04/16/17 08:35 (Lyrica) 75 mg TID PO 04/12/17 18:00 04/16/17 12:18 (Creon 12-38-60) 6 cap TID PO 04/12/17 18:00 04/16/17 12:19 (Levemir Inj) 10 units HS SQ 04/12/17 21:00 04/15/17 21:41 (Santyl Oint) 1 applic DAILY TOPICAL 04/13/17 18:00 04/16/17 08:36 Vancomycin HCl 1500 mg/Sodium Chloride 515 ml @ 250 mls/hr Q18H IV 04/15/17 09:00 04/16/17 03:36 Miscellaneous Information SPECIFIC LAB TO BE DRAWN:VANCOMYCIN TROUGH DATE TO... ONCE ONCE .XX 04/17/17 14:45 04/17/17 14:46 Family History reviewed and NC to current ID problem. Social History Hx of tobacco use, quit 25 years ago Social alcohol use Denies any illicit drug use Lives with . Mikayla lives in [place]. Physical Exam Vital Signs Vital Signs Date Time Temp Pulse Resp B/P (MAP) Pulse Ox O2 Delivery O2 Flow Rate FiO2 04/16/17 12:00 97.6 66 18 116/62 (80) 96 04/16/17 08:53 61 04/16/17 08:00 97.7 61 18 124/71 (88) 96 04/16/17 04:00 98.3 66 18 128/68 (88) 94 04/16/17 00:00 98.1 66 18 129/94 (106) 94 04/15/17 20:15 98.0 68 18 132/77 (95) 94 04/15/17 19:39 68 04/15/17 16:00 97.7 55 17 173/82 (112) 100 Physical Exam GENERAL: This is a well-nourished, well-developed patient, in no apparent distress. SKIN: No rashes, ecchymoses or lesions. Cool and dry. HEAD: Atraumatic. Normocephalic. No temporal or scalp tenderness. EYES: Pupils equal round and reactive. Extraocular motions intact. No scleral icterus. No injection or drainage. ENT: Nose without bleeding, purulent drainage or septal hematoma. Throat without erythema, tonsillar hypertrophy or exudate. Uvula midline. Airway patent. NECK: Trachea midline. Supple, nontender, no meningeal signs. CARDIOVASCULAR: HS audible. RESPIRATORY: Clear to auscultation. Breath sounds equal bilaterally. No wheezes , rales, or rhonchi. GASTROINTESTINAL: Abdomen soft, non-tender, nondistended. No hepato-splenomegaly , or palpable masses. No guarding. MUSCULOSKELETAL: Dressing opened. Left foot with minimal erythema on tip of great toe and 2nd toe. Debrided areas with dried blood. Diminished dorsalis pedis pulses but palpable. NEUROLOGICAL: Awake and alert. Non focal exam Psych cooperative IV line sites with no e.o infection Laboratory Laboratory Tests Test 04/16/17 07:05 Creatinine 1.00 Estimat Glomerular Filtration Rate 76 Date/Time Source Procedure Growth Status 04/12/17 10:30 Blood Peripheral Aerobic Blood Culture - Preliminary NO GROWTH IN 4 DAYS Resulted 04/12/17 10:30 Blood Peripheral Anaerobic Blood Culture - Preliminary NO GROWTH IN 4 DAYS Resulted 04/12/17 10:35 Wound Toe Gram Stain - Final Complete 04/12/17 10:35 Wound Culture - Final Staphylococcus Aureus Acinetobacter Baumannii/Haemol Complete Result Diagram: 04/13/17 0250 04/16/17 0705 Imaging Last Impressions Myocardial Perfusion Scan Nuc Med 04/13/17 0000 Signed Impressions: Service Date/Time: Thursday, April 13, 2017 12:51 - CONCLUSION: 1. No left ventricle perfusion abnormality is identified. 2. Normal left ventricle wall motion and calculated ejection fraction. RISK CATEGORY: Low (<1%% Annual Mortality Rate) Chirag Green MD Foot X-Ray 04/12/17 1024 Signed Impressions: Service Date/Time: Wednesday, April 12, 2017 10:38 - CONCLUSION: 1. Soft tissue swelling of the first digit. There are no findings to indicate osteomyelitis of the adjacent bones. Please note that the radiographic findings of osteomyelitis can take 10-14 days to become apparent. Therefore, suggest followup if clinical suspicion persists for osteomyelitis. 2. Severe small vessel arterial vascular calcification. Chirag Green MD Chest X-Ray 04/12/17 1024 Signed Impressions: Service Date/Time: Wednesday, April 12, 2017 10:35 - CONCLUSION: No acute cardiopulmonary abnormality is identified. Chirag Green MD Foot MRI 04/12/17 0000 Signed Impressions: Service Date/Time: Wednesday, April 12, 2017 13:56 - CONCLUSION: 1. No evidence for osteomyelitis. 2. 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 The dorsalis pedis is well-demonstrated fed by the anterior tibial artery. Blake Edwards MD FACR Assessment and Plan Assessment and Plan Left foot cellulitis Left great toe and 2nd toe ulcer with infection with following organisms. Ac baumannii infection MSSA infection PVD s.p Right AKA Recs DC Zosyn IV DC Vanco IV Start Bactrim DS Start levaquin oral. Ok to DC home on oral above regimen for 14 days. Follow up with Dr.Reba Maldonado for ID and Podiatry. If does not improve by follow up middle of next week or worsens in the interim may need IV antibiotics. Patient made aware of above plan and agrees to follow up in clinic with above doctors. Alan cueto RN Will sign off please call back if any change in clinical condition or questions. Luiza Moreno MD Apr 16, 2017 14:20
[2017-04-16] MEDS ORDERED: LEVOFLOXACIN 500 MG TAB PO SCH (14:30)
[2017-04-16] MEDS ORDERED: SULFAMETHOXAZOLE-TRIMETHOPRIM DS 800-160 MG TAB PO SCH (14:30)
[2017-04-16] MEDS ORDERED: LEVA500T33 PO (14:34)
[2017-04-16] MEDS ORDERED: SULF1TAB23 PO (14:34)
--- NOTE | 2017-04-16 14:41 | HHI.DS ---
Discharge Summary Admission Date Apr 12, 2017 at 12:48 Discharge Date: Apr 16, 2017 Admitting Diagnosis Left foot cellulitis, DM, HTN, (1) Unspecified open wound, left foot, initial encounter Diagnosis: Principal ICD Codes: S91.302A - Unspecified open wound, left foot, initial encounter (2) PVD (peripheral vascular disease) Diagnosis: Secondary ICD Codes: I73.9 - Peripheral vascular disease, unspecified Status: Acute (3) Chest pain Diagnosis: Principal ICD Codes: R07.9 - Chest pain, unspecified (4) DM2 (diabetes mellitus, type 2) Diagnosis: Secondary ICD Codes: E11.9 - Type 2 diabetes mellitus without complications Status: Chronic (5) HTN (hypertension) Diagnosis: Secondary ICD Codes: I10 - Essential (primary) hypertension Status: Chronic (6) Depression Diagnosis: Secondary ICD Codes: F32.9 - Major depressive disorder, single episode, unspecified Status: Chronic (7) Unilateral AKA Diagnosis: Secondary ICD Codes: Z89.619 - Acquired absence of unspecified leg above knee Status: Acute Consultants Dr. Moreno, ID Dr. Smith, Podiatry Procedures Bedside debridement left foot 04/15 Brief History Mr. Ott is a pleasant 61 y/o male with diabetes mellitus, hypertension, peripheral vascular disease s/p right AKA in 2016, and chronic pain who presented to the ED at [facility] on 04/12/17 with complaints of redness and drainage of his left first and second toes. Patient reported that over the weekend he noticed the first and second toes became discolored. He had his check it and she noted that there were ulcers on the bottom of his 2 toes. He was seen by his tinning equipment tender, Dr. Garcia, who evaluated him and sent him here for admission. He reports that the pain from his foot runs up his leg into his groin. He also reported some left chest pain that began yesterday, rated as a 6 out of 10 on the pain scale. It occurs sporadically and lasts for varying amounts of time. It can vary from a sharp pain to a dull ache, not exertional. No reported SOB, palpitations, nausea/vomiting, diaphoresis, or weakness. CBC/BMP: 04/13/17 0250 04/16/17 0705 Significant Findings Laboratory Tests Test 2/28/18 08:17 04/14/17 14:55 04/16/17 07:05 Estimat Glomerular Filtration Rate 66 ML/MIN (>89) 76 ML/MIN (>89) Vancomycin Level Trough 12.6 MCG/ML (5.0-10.0) Imaging Last Impressions Myocardial Perfusion Scan Nuc Med 04/13/17 0000 Signed Impressions: Service Date/Time: Thursday, April 13, 2017 12:51 - CONCLUSION: 1. No left ventricle perfusion abnormality is identified. 2. Normal left ventricle wall motion and calculated ejection fraction. RISK CATEGORY: Low (<1%% Annual Mortality Rate) Chirag Green MD Foot X-Ray 04/12/17 1024 Signed Impressions: Service Date/Time: Wednesday, April 12, 2017 10:38 - CONCLUSION: 1. Soft tissue swelling of the first digit. There are no findings to indicate osteomyelitis of the adjacent bones. Please note that the radiographic findings of osteomyelitis can take 10-14 days to become apparent. Therefore, suggest followup if clinical suspicion persists for osteomyelitis. 2. Severe small vessel arterial vascular calcification. Chirag Green MD Chest X-Ray 04/12/17 1024 Signed Impressions: Service Date/Time: Wednesday, April 12, 2017 10:35 - CONCLUSION: No acute cardiopulmonary abnormality is identified. Chirag Green MD Foot MRI 04/12/17 0000 Signed Impressions: Service Date/Time: Wednesday, April 12, 2017 13:56 - CONCLUSION: 1. No evidence for osteomyelitis. 2. 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 The dorsalis pedis is well-demonstrated fed by the anterior tibial artery. Blake Edwards MD FACR PE at Discharge General: NAD, AAOx3 Chest: CTA Cardiac: Regular Abd: +BS, soft ND/NT Ext: Right AKA. Left foot first and second toes with circumferential erythema and black eschar ulcerations with some serous drainage on the plantar aspects. Hospital Course Unspecified open wound, left foot, initial encounter - Pt is a 61 y/o male with diabetes mellitus, hypertension, peripheral vascular disease s/p right AKA in 2016, and chronic pain who presented to the ED at [facility] on 04/12/17 with complaints of redness and drainage of his left first and second toes. Patient reported that over the weekend he noticed the first and second toes became discolored and there were ulcers on the bottom of his 2 toes. He was seen by his tinning equipment tender, Dr. Garcia, today who evaluated him and sent him here for admission. - Foot Xray in the ED without evidence of osteomyelitis - MRI Foot (04/12/17) --> No evidence for osteomyelitis. Arterial insufficiency without the plantar arch identified. The dorsalis pedis is well-demonstrated fed by the anterior tibial artery. - Wound culture taken in the ED is growing Staph Sp and GNR - Blood cultures (04/12) with NGTD - Pt was on Vancomycin and Zosyn - Consult podiatry. Recommending Continue IV antibiotics Wound care orders placed for Santyl and moist to dry dressing Postop shoe to offload left hallux and second digit Podiatry will reevaluate patient in 24-48 hours, patient should be able go home on oral antibiotics Patient is at high risk since he has had a right AKA will monitor closely - 04/[address] Priest and Dr. Smith. cellulitis still present. - 04/[address] Smith - Consult ID for assistance and abx recommendations, appreciate recommendations - Hold Plavix for now in case podiatry plans any surgical intervention - Supportive care - Further recommendations as the case develops PVD (peripheral vascular disease) - Pt with hx of PAD and has right AKA Chest pain - Serial CE are negative - 2D echo (04/13/17) --> Estimated EF 60%, mild concentric LVH, aortic valve sclerosis - Lexiscan (04/13/17) --> No left ventricular perfusion abnormality identified, normal LV wall motion and calculated EF. DM2 (diabetes mellitus, type 2) - Hold OHA - NovoLog SSI - Pt also takes Tresiba 18 units HS, we will give Levemir 10 units HS and titrate up as needed - Accu checks - patient to return to prior home regiment after DC HTN (hypertension) - Cont. home meds (Norvasc 5mg po daily, Imdur 60mg po daily) - Monitor Depression - Cont. home meds Unilateral AKA Acute Pt Condition on Discharge: Stable Discharge Disposition: Disch w/ Home Health Serv Discharge Instructions DIET: Follow Instructions for: Diabetic Diet Activities you can perform: See Additionl Instruction Other Activity Instructions: activity per Podiatry Follow up Referrals: Infectious Disease - [address] Maldonado PCP Follow-up - [address] Boyd Podiatry - 3-5 Days with Jomar Stoll DPM New Medications: Levofloxacin (Levaquin) 500 Mg Tablet 500 MG PO DAILY for antibiotic for 14 Days, #14 TAB 0 Refills Sulfamethoxazole-Trimethoprim (Sulfamethoxazole-Trimethoprim) 800-160 Mg Tab 1 TAB PO Q12HR for antibiotic for 14 Days, #28 TAB 0 Refills Continued Medications: Amlodipine (Norvasc) 5 Mg Tab 5 MG PO DAILY for Blood Pressure Management, #30 TAB [address] (Aspirin Adult Low Strength) 81 Mg Tabdr 81 MG PO DAILY for Health Maintenance, TAB Atorvastatin (Lipitor) 40 Mg Tab 40 MG PO DAILY for Cholesterol Management, #30 TAB 0 Refills Calcium Carbonate (Calcium) 600 Mg Calcium (1500 Mg) Tab 600 MG PO BID for Nutritional Supplement Cholecalciferol (Vitamin D3) 1,000 Unit Tab 1000 UNITS PO DAILY for Nutritional Supplement, #1 BOTTLE 0 Refills Cilostazol (Cilostazol) 100 Mg Tab 100 MG PO BID for INTERMITTENT CLAUDICATION, TAB 0 Refills Clopidogrel (Plavix) 75 Mg Tab 75 MG PO DAILY for Blood Clot Prevention, #30 TAB 0 Refills Cyanocobalamin (Vitamin B-12) 1,000 Mcg Tab 1000 MCG PO DAILY for Nutritional Supplement, #1 BOTTLE 0 Refills Insulin Aspart Inj (Novolog Inj) 1,000 Unit/10 Ml Vial 6 UNITS SQ TIDAC for Blood Sugar Management, #1 INJECTION 0 Refills Insulin Degludec Inj (Tresiba Flextouch Pen Inj) 300 unit/3 ML Pen 18 UNITS SQ HS for Blood Sugar Management, #15 ML 0 Refills Isosorbide Mononitrate ER (Isosorbide Mononitrate ER) 60 Mg Tab 60 MG PO DAILY for Prevent Chest Pain, #30 TAB 0 Refills Levothyroxine (Synthroid) 75 Mcg Tab 75 MCG PO SuTuThFr for Thyroid, #30 TAB 0 Refills Take 1 tablet (75mcg) daily on Wednesday,Wednesday, and Wednesday Levothyroxine (Synthroid) 88 Mcg Tab 88 MCG PO MoWeSa for Thyroid, #30 TAB 0 Refills Take 1 tablet (88mcg) daily on Wednesday,Wednesday and Wednesday Linagliptin (Tradjenta) 5 Mg Tab 5 MG PO DAILY for Blood Sugar Management, #30 TAB 0 Refills Metformin (Metformin) 850 Mg Tab 850 MG PO BIDPC for Blood Sugar Management, TAB 0 Refills Multiple Vitamin (Multiple Vitamin) 1 Tab 1 TAB PO DAILY for Nutritional Supplement, TAB 0 Refills Pancrelipase (Creon) 36,000-114,000-180,000 Units Cap 2 CAP PO TID for Digestive Aid, #90 CAP 0 Refills Pantoprazole (Pantoprazole) 40 Mg Tab 40 MG PO BID for Reflux, #30 TAB 0 Refills Take 30 minutes before breakfast and dinner Pregabalin (Lyrica) 75 Mg Cap 75 MG PO TID for Pain Management, #90 CAP 0 Refills [Magnesium 1000MG] () 1000 MG PO DAILY for Nutritional Supplement Additional Information Patient examined. Assessment and plan formulated with Ayala Richey PA-C. I agree with the above. Ayala Richey Apr 16, 2017 14:41 Chapito Woods DO Apr 19, 2017 10:42
--- NOTE | 2017-04-16 17:18 | HHI.PR ---
Subjective Remarks Patient seen bedside this afternoon. Denies nausea, vomiting, fevers, or chills. Denies calf pain. Resting comfortably. He is eager and happy to go home. Objective Vital Signs Date Time Temp Pulse Resp B/P (MAP) Pulse Ox O2 Delivery O2 Flow Rate FiO2 04/16/17 16:00 97.5 67 18 127/68 (87) 96 04/16/17 12:02 66 04/16/17 12:00 97.6 66 18 116/62 (80) 96 04/16/17 08:53 61 04/16/17 08:00 97.7 61 18 124/71 (88) 96 04/16/17 04:00 98.3 66 18 128/68 (88) 94 04/16/17 00:00 98.1 66 18 129/94 (106) 94 04/15/17 20:15 98.0 68 18 132/77 (95) 94 04/15/17 19:39 68 I/O 04/15/17 04/15/17 04/15/17 04/16/17 04/16/17 04/16/17 07:00 15:00 23:00 07:00 15:00 23:00 Intake Total 100 ml 300 ml 50 ml Output Total 350 ml Balance 100 ml -350 ml 300 ml 50 ml IV Total 100 ml 300 ml 50 ml Output Urine Total 350 ml # Voids 3 3 1 # Bowel Movements 1 Result Diagram: 04/13/17 0250 04/16/17 0705 Imaging Last Impressions Myocardial Perfusion Scan Nuc Med 04/13/17 0000 Signed Impressions: Service Date/Time: Thursday, April 13, 2017 12:51 - CONCLUSION: 1. No left ventricle perfusion abnormality is identified. 2. Normal left ventricle wall motion and calculated ejection fraction. RISK CATEGORY: Low (<1%% Annual Mortality Rate) Chirag Green MD Foot X-Ray 04/12/17 1024 Signed Impressions: Service Date/Time: Wednesday, April 12, 2017 10:38 - CONCLUSION: 1. Soft tissue swelling of the first digit. There are no findings to indicate osteomyelitis of the adjacent bones. Please note that the radiographic findings of osteomyelitis can take 10-14 days to become apparent. Therefore, suggest followup if clinical suspicion persists for osteomyelitis. 2. Severe small vessel arterial vascular calcification. Chirag Green MD Chest X-Ray 04/12/17 1024 Signed Impressions: Service Date/Time: Wednesday, April 12, 2017 10:35 - CONCLUSION: No acute cardiopulmonary abnormality is identified. Chirag Green MD Foot MRI 04/12/17 0000 Signed Impressions: Service Date/Time: Wednesday, April 12, 2017 13:56 - CONCLUSION: 1. No evidence for osteomyelitis. 2. 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 The dorsalis pedis is well-demonstrated fed by the anterior tibial artery. Blake Edwards MD FACR Procedures One day status post debridement of left plantar hallux and left plantar second digit wounds. Other Results Microbiology Date/Time Source Procedure Growth Status 04/12/17 10:30 Blood Peripheral Aerobic Blood Culture - Preliminary NO GROWTH IN 4 DAYS Resulted 04/12/17 10:30 Blood Peripheral Anaerobic Blood Culture - Preliminary NO GROWTH IN 4 DAYS Resulted 04/12/17 10:35 Wound Toe Gram Stain - Final Complete 04/12/17 10:35 Wound Culture - Final Staphylococcus Aureus Acinetobacter Baumannii/Haemol Complete Objective Remarks Lower extremity physical exam: Vascular: Dorsalis pedis nonpalpable, posterior tibial 1/4. Capillary refill time within normal limits to digits 5 left foot. Edema present left hallux and second digit with associated erythema. Pitting edema noted to left lower extremity. Neuro: Gross sensation intact to bilateral lower extremity. Pinpoint sensation decreased to left lower extremity. No hyperalgesia noted to bilateral lower extremity Dermatology: Left hallux ulcer to distal plantar hallux measuring approximately 1.5 cm x 1.5 cm with 0.1 depth, with granular base and no hyperkeratotic border noted. Left second digit ulcer to distal plantar distal phalanx measuring approximately 1 cm x 1 cm with 0.1 depth, with granular base and no hyperkeratotic border noted. Associated erythema to left hallux and left second digit receding and improving to hallux and second digit. No purulent drainage upon compression. No probe to bone to hallux are second digit, left foot. Musculoskeletal: Tender to palpation to left hallux and second digit. Hammertoes noted 2 through 5 left foot. Medications and IVs Current Medications Medications (Trade) Dose Ordered Sig/Eleazar Route Start Time Stop Time Status Last Admin (NS Flush) 2 ml UNSCH PRN IV FLUSH 04/12/17 12:00 (NS Flush) 2 ml BID IV FLUSH 04/12/17 21:00 04/16/17 08:35 (Tylenol) 650 mg Q4H PRN PO 04/12/17 12:00 (Reglan Inj) 5 mg Q6H PRN IV PUSH 04/12/17 12:00 04/13/17 16:39 (Narcan Inj) 0.4 mg UNSCH PRN IV PUSH 04/12/17 12:00 (Milk Of Magnesia Liq) 30 ml Q12H PRN PO 04/12/17 12:00 (NovoLOG SUPPLEMENTAL SCALE) 1 ACHS SLIDING SCALE SQ 04/12/17 12:00 04/16/17 12:18 (D50w (Vial) Inj) 50 ml UNSCH PRN IV PUSH 04/12/17 12:00 (Glucagon Inj) 1 mg UNSCH PRN OTHER 04/12/17 12:00 (Norvasc) 5 mg DAILY PO 04/13/17 09:00 04/16/17 08:35 (Ecotrin Ec) 81 mg DAILY PO 04/13/17 09:00 04/16/17 08:35 (Lipitor) 40 mg DAILY PO 04/13/17 09:00 04/16/17 08:35 (Imdur) 60 mg DAILY PO 04/13/17 09:00 04/16/17 08:35 (Synthroid) 75 mcg SuTuThFr PO 04/13/17 06:00 04/16/17 06:00 (Synthroid) 88 mcg MoWeSa@0600 PO 04/12/17 16:00 04/14/17 06:09 (Protonix) 40 mg BID PO 04/12/17 21:00 04/16/17 08:35 (Lyrica) 75 mg TID PO 04/12/17 18:00 04/16/17 12:18 (Creon 12-38-60) 6 cap TID PO 04/12/17 18:00 04/16/17 12:19 (Levemir Inj) 10 units HS SQ 04/12/17 21:00 04/15/17 21:41 (Santyl Oint) 1 applic DAILY TOPICAL 04/13/17 18:00 04/16/17 08:36 (Bactrim Ds 800-160 Mg) 1 tab Q12HR PO 04/16/17 14:30 04/16/17 14:43 (Levaquin) 500 mg DAILY PO 04/16/17 14:30 04/16/17 14:43 Assessment and Plan Assessment and Plan 61-year-old male with left hallux and left second digit ulcerations with associated cellulitis Patient examined and evaluated with all questions answered Spoke with infectious disease patient will be discharged on appropriate oral antibiotics Okay to DC per podiatry Improvement noted to left hallux and second digit ulcers Patient is to follow-up with Dr. Garcia within 1 week of discharge Please continue to have home health care apply Santyl and moist to dry dressing Postop shoe to offload left hallux and second digit Weight-bearing as tolerated to left lower extremity Natasha Smith DPM Apr 16, 2017 17:18
[2017-04-17] MEDS ORDERED: PHARMACY ORDERED LAB ONE (14:45)
== END 2017-04-16 17:45 | disposition home health service (06) | DRG 638 ==
LOC: NEPC 09:32 → NEDA 12:48 → N05B 15:41
PROVIDERS: ADMIT Hospitalist; ATTEND Hospitalist
PROC: 0HBNXZZ Excision of Left Foot Skin, External Approach (ICD-10-PCS; principal; 2017-04-15)
DX: E11.621 Type 2 diabetes mellitus with foot ulcer (principal); L03.116 Cellulitis of left lower limb; L97.529 Non-pressure chronic ulcer of other part of left foot with unspecified severity; E11.42 Type 2 diabetes mellitus with diabetic polyneuropathy; E11.51 Type 2 diabetes mellitus with diabetic peripheral angiopathy without gangrene; K86.1 Other chronic pancreatitis; B95.61 Methicillin susceptible Staphylococcus aureus infection as the cause of diseases classified elsewhere; B96.89 Other specified bacterial agents as the cause of diseases classified elsewhere; Z79.02 Long term (current) use of antithrombotics/antiplatelets; Z79.82 Long term (current) use of aspirin; Z79.4 Long term (current) use of insulin; Z79.84 Long term (current) use of oral hypoglycemic drugs; I10 Essential (primary) hypertension; Z89.611 Acquired absence of right leg above knee; M10.9 Gout, unspecified; E78.5 Hyperlipidemia, unspecified; K21.9 Gastro-esophageal reflux disease without esophagitis; E03.9 Hypothyroidism, unspecified; G89.29 Other chronic pain; F32.9 Major depressive disorder, single episode, unspecified; R07.89 Other chest pain; M20.42 Other hammer toe(s) (acquired), left foot; M51.16 Intervertebral disc disorders with radiculopathy, lumbar region; Z87.891 Personal history of nicotine dependence
CPT/HCPCS: 71045; 73630; 73720; 78452; 80048; 80053; 80202; 82550; 82565; 82948; 84484; 85025; 85610; 85730; 86403; 87040; 87070; 87077; 87147; 87186; 87205; 93005; 93017; 93306; 93923; A9502; A9579; J1815; J2543; J2765; J2785; J3370; J7040; J7050; L3260